=== PATIENT | female | born 1995 | race Caucasian/White ===

== ENCOUNTER 2020-05-15 23:28 | Emergency (ER) | payer OTHER, SELFPAY ==
--- NOTE | ~2020-05-15 | CT_ITS ---
EXAMINATION: CT brain wo con EXAM DATE: 05/15/2020 23:54 INDICATION: Seizure, head injury, fall . Dizziness. TECHNIQUE: Spiral CT of the head was performed without contrast. Axial, coronal and sagittal images were reviewed. The dose-length product (DLP) for this examination was 605.33 mGy-cm. The exposure w as tailored according to patient size, and iterative reconstruction (ASIR) was used as additional dos e reduction technique. Comparison is made to prior examination from 05/21/2019. FINDINGS: There is no acute intraparenchymal hemorrhage. No evidence of intraparenchymal brain mass lesion. No evidence of acute infarction. There is no mass effect or midline shift. The ventricles are normal in size. There are no extra-axial collections. There are no acute calvarial fractures. T he orbits are unremarkable. Soft tissue is unremarkable. The visualized sinuses and mastoid air kathryn ls are well aerated. IMPRESSION: 1. Unremarkable head CT examination. Reviewed, dictated and finalized at location G. CONTROL REPRESENTATIVE
[2020-05-15 23:30] VITALS: BP 118/66; PULSE 108; RESP 20; TEMP 36.8; O2SAT 97
--- NOTE | 2020-05-15 23:36 | ED.SEIZURE ---
HPI - Seizure General Chief Complaint: Seizure Stated Complaint: Seizures Time Seen by Provider: 05/15/20 23:37 Source: patient Mode of arrival: EMS Limitations: no limitations History of Present Illness HPI Narrative: 24-year-old woman with a history of seizures brought in today by EMS after having had 3 seizures at home today. The 1st seizure was unwitnessed and the patient found herself with a bruise on her forehead afterwards. Second seizure was witnessed by her father and was generalized and lasted approximately 30 seconds. Her father heard something later this evening and when he checked on her found her seizing. Her last seizure was several months ago. She has a neurologist at [facility]. complaint: seizure Onset (ago): minute(s) Witnessed: Yes - by Bystander Trauma: Yes Seizure History: Yes Place: home Possible Precipitating Event: none Associated symptoms: denies other symptoms Treatments prior to arrival: none Related Data Home Medications Medication Instructions Recorded Confirmed Fycompa 4 mg PO HS 05/21/19 05/15/20 Vimpat 200 mg PO Q12H 05/21/19 05/15/20 clobazam 10 mg PO HS 05/21/19 05/15/20 lorazepam 1 mg PO DAILY PRN 05/21/19 05/15/20 Allergies Allergy/AdvReac Type Severity Reaction Status Date / Time No Known Allergies Allergy Verified 05/21/19 22:53 Review of Systems Constitutional: Constitutional: Denies chills, Denies fatigue, Denies fever(s) and Denies weakness Eyes: Eyes: Denies change in vision and Denies photophobia ENT: Denies dysphagia, Denies nasal congestion and Denies sore throat Cardiovascular: Cardiovascular: Denies chest pain and Denies radiating jaw, neck or arm pain Respiratory: Respiratory: Denies cough, Denies dyspnea and Denies wheezing Gastrointestinal: Gastrointestinal: Denies abdominal pain, Denies diarrhea, Denies nausea and Denies vomiting Genitourinary: Genitourinary: Denies hematuria, Denies nocturia and Denies dysuria Musculoskeletal: Musculoskeletal: Denies back pain, Denies arthralgias and Denies joint swelling Integumentary/Breasts: Skin/Breast: Denies pruritus, Denies erythema and Denies rash Neurologic: Denies vertigo, Denies dizziness and Denies syncope Hematologic/Lymphatic: Hematologic/Lymphatic: Denies easy bleeding and Denies easy bruising Allergic/Immunologic: Allergic/Immunologic: Denies lip swelling and Denies throat swelling PMFSH Past Medical History Medical History Seizures (Unknown) Family History Family History Father End stage renal failure on dialysis Social History Social History Smoking status: Never smoker Alcohol intake: never Substance use: never Substance use type: prescription drug Other substance usage details: Uses Ativan Frequently, if she has a Seizure at home. Spiritual care concerns: No Exam Const: General: healthy appearing, no acute distress and alert Nutritional Appearance: obese Orientation/consciousness: patient oriented x3 Limitations: no limitations HENMT: Head: normal to inspection and contusion left frontal 4 cm Ears: external ears normal, TM's normal bilaterally and EAC's normal General nose exam: Normal nares present Face and sinus: normal facial exam Eyes: Conjunctivae: conjunctivae normal EOM: EOMs intact bilaterally Resp: Effort & Inspection: normal respiratory effort and not labored Auscultation: clear to auscultation bilaterally, no rales, no rhonchi and no wheezes Cardio: Rate: regular rate Rhythm: regular rhythm Heart sounds: no murmurs GI: GI Palp: No Tenderness to palpation present (GI) and No Guarding due to palpation present (GI) Skin: General skin exam: normal color, no jaundice and no pallor Rashes: no rashes Neuro: General: moves all extremities, no focal motor deficits and CN's II-XI intact bilaterally
[2020-05-16] LABS: Glucose Point of Care 114 (65-105)
[2020-05-16 00:20] LABS: Basophils Absolute Auto 0.05 K/mm3 (0.00-0.10); Basophils Percent Auto 0.4 % (0.0-1.0); Eosinophils Absolute Auto 0.04 K/mm3 (0.02-0.50); Eosinophils Percent Auto 0.3 % (1.0-6.0); Hematocrit 37.3 % (35.0-49.0); Hemoglobin 12.9 g/dL (12.0-15.0); Immature Granulocyte Absolute 0.08 K/mm3 (0.00-0.00); Immature Granulocyte Percent A 0.6 % (0.0-0.0); Lymphocytes Absolute Auto 2.06 K/mm3 (1.10-4.50); Lymphocytes Percent Auto 14.6 % (18.0-42.0); Mean Corpuscular HGB Conc 34.6 g/dL (32.0-36.0); Mean Corpuscular Hemoglobin 32.6 pg (27.0-31.0); Mean Corpuscular Volume 94.2 fL (78.0-102.0); Monocytes Absolute Auto 0.75 K/mm3 (0.10-0.90); Monocytes Percent Auto 5.3 % (2.0-11.0); Neutrophils Absolute Auto 11.2 K/mm3 (1.7-7.2); Neutrophils Percent Auto 78.8 % (50.0-70.0); Platelet Count Result 331 K/mm3 (150-420); Red Blood Count 3.96 M/mm3 (4.20-5.40); Red Cell Distribution Width 13.6 % (11.6-14.4); White Blood Count 14.2 K/mm3 (4.8-10.8)
[2020-05-16 00:23] LABS: Add Urine Microscopic? NO; Appearance Urine Clear (Clear); Bilirubin Urine Negative (Negative); Blood Urine Negative (Negative); Color Urine Yellow (Yellow); Glucose Urine UA Negative (Negative); Ketones Urine Negative (Negative); Leukocyte Esterase Ur Negative (Negative); Nitrate Urine Negative (Negative); Protein Urine Negative (Negative); Urobilinogen Urine 0.2 mg/dL (0.2-1.0); pH Urine 5.5 (5.0-8.0)
[2020-05-16 00:30] LABS: Amphetamine Screen Urine Negative (Negative); Barbiturate Screen Urine Negative (Negative); Benzodiazepines Screen Urine Positive (Negative); Cannabinoid Screen Urine Negative (Negative); Cocaine Screen Urine Negative (Negative); Methadone Screen Urine Negative (Negative); Opiate Screen Urine Negative (Negative); Phencyclidine Screen Urine Negative (Negative)
[2020-05-16 00:35] LABS: Alanine Aminotransferase 17 U/L (14-59); Albumin Level 3.6 g/dL (3.4-5.0); Alkaline Phosphatase 103 U/L (46-116); Anion Gap 10 mmol/L (8-16); Aspartate Amino Transferase 14 U/L (15-37); Blood Urea Nitrogen 9 mg/dL (7-18); Calcium 9.3 mg/dL (8.5-10.1); Carbon Dioxide 25 mmol/L (21-32); Chloride 100 mmol/L (98-108); Creatine Kinase 90 U/L (26-192); Estimated CRCL calculation 95 ml/min; Estimated Glomerular Filt Rate > 60; Glucose 117 mg/dL (70-99); Magnesium 1.8 mg/dL (1.8-2.4); Osmolality Calculated 279 mOsm/kg (285-295); Phosphorus 3.3 mg/dL (2.6-4.7); Potassium 3.7 mmol/L (3.5-5.1); Sodium 135 mmol/L (136-145); Total Protein 8.2 g/dL (6.4-8.2)
--- NOTE | 2020-05-16 01:12 | PC.NURSE ---
no seizure activity while in the er. dr li in with pt discussing plan of care.
--- NOTE | 2020-05-16 01:20 | PC.NURSE ---
spoke with dad, stated 30 sec for 2nd seizure , unaware of time for 1st seizure as he was not home. 3rd seizure she was in bed , dad was awakened by pt hand hitting wall during grand mal seizure , unknown time.
--- NOTE | 2020-05-16 02:04 | PC.NURSE ---
0023 dr li spoke with dr benedict at [facility]
[2020-05-16 02:21] VITALS: BP 104/70; PULSE 88; RESP 18; TEMP 37.1; O2SAT 98
== END 2020-05-16 02:27 | disposition home or self-care (01) ==
PROVIDERS: Emergency Provider Emergency Medicine; PCP Family Medicine
DX: R56.9 Unspecified convulsions (principal)
CPT/HCPCS: 36415; 70450; 80053; 80307; 81003; 82550; 82948; 83735; 84100; 85025; 99283; 99284

== ENCOUNTER 2020-05-22 07:20 | Emergency (ER) | payer OTHER, SELFPAY ==
[2020-05-22] VITALS (27 sets, daily range): BP systolic 85–147; BP diastolic 50–82; PULSE 99–104; RESP 14–18; TEMP 36.8; O2SAT 92–100
--- NOTE | ~2020-05-22 | CT_ITS ---
EXAMINATION: CT brain wo con EXAM DATE: 05/22/2020 10:31 INDICATION: seizure 7 seizures this morning, pt AMS, hx of seizure disorder. TECHNIQUE: Spiral CT of the head was performed without contrast. Axial, coronal and sagittal images were reviewed. The dose-length product (DLP) for this examination was 605.33 mGy-cm. The exposure w as tailored according to patient size, and iterative reconstruction (ASIR) was used as additional dos e reduction technique. Comparison is made to prior examination from 05/15/2020. FINDINGS: There is no acute intraparenchymal hemorrhage. No evidence of intraparenchymal brain mass lesion. No evidence of acute infarction. There is no mass effect or midline shift. The ventricles are normal in size. There are no extra-axial collections. There are no acute calvarial fractures. T he orbits are unremarkable. Soft tissue is unremarkable. The visualized sinuses and mastoid air kathryn ls are well aerated. IMPRESSION: 1. Unremarkable head CT examination. Reviewed, dictated and finalized at location B. APPLIANCE WASHING MACHINE MECHANIC
[2020-05-22] MEDS: LORazepam INJ (*CRX) 2 MG/ML VIAL 1 MG IV PUSH ×3 (07:40→11:30)
--- NOTE | 2020-05-22 08:30 | PC.NURSE ---
Pt noted to have bruises to salma legs and arms, also area to forehead which is reported from a seizure 1 week ago.
--- NOTE | 2020-05-22 09:02 | PCDIET ---
Pts father contacted to speak with dr dickson.
[2020-05-22 09:26] LABS: Basophils Absolute Auto 0.05 K/mm3 (0.00-0.10); Basophils Percent Auto 0.3 % (0.0-1.0); Eosinophils Absolute Auto 0.02 K/mm3 (0.02-0.50); Eosinophils Percent Auto 0.1 % (1.0-6.0); Hematocrit 37.7 % (35.0-49.0); Hemoglobin 12.7 g/dL (12.0-15.0); Immature Granulocyte Absolute 0.08 K/mm3 (0.00-0.00); Immature Granulocyte Percent A 0.5 % (0.0-0.0); Lymphocytes Percent Auto 5.3 % (18.0-42.0); Mean Corpuscular HGB Conc 33.7 g/dL (32.0-36.0); Mean Corpuscular Hemoglobin 32.2 pg (27.0-31.0); Mean Corpuscular Volume 95.7 fL (78.0-102.0); Mean Platelet Volume 9.4 fl (9.2-11.8); Monocytes Absolute Auto 0.42 K/mm3 (0.10-0.90); Monocytes Percent Auto 2.5 % (2.0-11.0); Neutrophils Absolute Auto 15.4 K/mm3 (1.7-7.2); Neutrophils Percent Auto 91.3 % (50.0-70.0); Platelet Count Result 345 K/mm3 (150-420); Red Blood Count 3.94 M/mm3 (4.20-5.40); Red Cell Distribution Width 13.7 % (11.6-14.4); White Blood Count 16.9 K/mm3 (4.8-10.8)
[2020-05-22 09:41] LABS: SPREG INTERNAL CONTROL Positive; Serum Qual hCG Negative
[2020-05-22 09:44] LABS: Alanine Aminotransferase 17 U/L (14-59); Albumin Level 3.6 g/dL (3.4-5.0); Alkaline Phosphatase 99 U/L (46-116); Anion Gap 13 mmol/L (8-16); Aspartate Amino Transferase 12 U/L (15-37); Bilirubin,Total 0.4 mg/dL (0.00-1.00); Blood Urea Nitrogen 12 mg/dL (7-18); Calcium 8.6 mg/dL (8.5-10.1); Carbon Dioxide 21 mmol/L (21-32); Chloride 102 mmol/L (98-108); Estimated Glomerular Filt Rate > 60; Glucose 125 mg/dL (70-99); Osmolality Calculated 282 mOsm/kg (285-295); Potassium 4.2 mmol/L (3.5-5.1); Sodium 136 mmol/L (136-145); Total Protein 8.1 g/dL (6.4-8.2)
[2020-05-22 09:45] LABS: Creatine Kinase 74 U/L (26-192)
--- NOTE | 2020-05-22 10:22 | PC.NURSE ---
Pt remains in a postictal state. pt incontinant of urine, pt cleaned. pt opens eyes to deep painful stimuli. susan
--- NOTE | 2020-05-22 10:48 | PC.NURSE ---
[facility] contacted for transfer. spoke with arvin at the transfer center.
[2020-05-22] MEDS: SODIUM CHLORIDE 0.9% IV 1,000 ML 999 ML IV CONT ×2 (11:00→12:59)
[2020-05-22 11:28] LABS: Add Urine Microscopic? YES; Appearance Urine Clear (Clear); Bilirubin Urine Negative (Negative); Blood Urine Negative (Negative); Color Urine Yellow (Yellow); Glucose Urine UA Negative (Negative); Ketones Urine Negative (Negative); Leukocyte Esterase Ur Negative (Negative); Nitrate Urine Negative (Negative); Protein Urine 1+ (Negative); Specific Grav Ur >= 1.030 (1.010-1.020); Urobilinogen Urine 0.2 mg/dL (0.2-1.0)
[2020-05-22 11:33] LABS: SARS-CoV-2 Ag Negative (Negative)
[2020-05-22 11:34] LABS: Bacteria Urine 2+ /hpf; Mucus Urine Moderate /lpf; RBC Urine 0-2 /hpf (0-2); Squamous Epithelial Cell Urine Few /hpf (Few); WBC Urine 0-3 /hpf (0-3)
[2020-05-22 11:36] LABS: Amphetamine Screen Urine Negative (Negative); Barbiturate Screen Urine Negative (Negative); Benzodiazepines Screen Urine Positive (Negative); Cannabinoid Screen Urine Negative (Negative); Cocaine Screen Urine Negative (Negative); Methadone Screen Urine Negative (Negative); Opiate Screen Urine Negative (Negative); Phencyclidine Screen Urine Negative (Negative)
--- NOTE | 2020-05-22 11:55 | PC.NURSE ---
Pt repositioned, pt continues to be postictal. moaned when repositioned.
--- NOTE | 2020-05-22 12:03 | PC.NURSE ---
Dr. Duarte speaking with Dr. CLARK, neurologist at [facility].
--- NOTE | 2020-05-22 12:10 | PC.NURSE ---
Dr. CLARK requesting that pt go to [facility] [place] and he will accept and see her there.
[2020-05-22 12:22] LABS: Reflex Lactic Acid Yes or No Add Lactic
--- NOTE | 2020-05-22 12:40 | PC.NURSE ---
[facility] does not have a bed available for pt. [facility] called back.
--- NOTE | 2020-05-22 13:45 | PC.NURSE ---
[facility] contacted for transfer
--- NOTE | 2020-05-22 13:51 | ED.SEIZURE ---
HPI - Seizure General Chief Complaint: Seizure Stated Complaint: AMBULANCE Time Seen by Provider: 05/22/20 07:35 Source: patient and family Mode of arrival: EMS Limitations: no limitations History of Present Illness HPI Narrative: Patient presents witha history of frontal lobe epilepsy. She comes in after having 4 brief seizures at home less than one minute long. These started at 4am. Father gave her ativan 1mg. She has had a total of 4 brief seizures at home. Given her history, and physical exam, there is little possibility of meningitis, or head injury. We will evaluate for a metabolic disorder. MD complaint: possible seizure Description of Episode: loss of consciousness and tonic-clonic movement Witnessed: Yes - by Bystander Trauma: No Seizure History: Yes Place: home Possible Precipitating Event: none and other (medication noncompliance) Related Data Home Medications Medication Instructions Recorded Confirmed Fycompa 4 mg PO HS 05/21/19 05/22/20 Vimpat 200 mg PO Q12H 05/21/19 05/22/20 clobazam 10 mg PO HS 05/21/19 05/22/20 lorazepam 1 mg PO DAILY PRN 05/21/19 05/22/20 Allergies Allergy/AdvReac Type Severity Reaction Status Date / Time No Known Allergies Allergy Verified 05/21/19 22:53 Review of Systems Review of Systems: ROS unobtainable: Yes unobtainable due to medical condition [facility] Past Medical History Medical History (Updated 05/22/20 @ 14:19 by Aryan Duarte MD) Seizures (Unknown) Family History Family History Father End stage renal failure on dialysis Social History Social History Smoking status: Never smoker Alcohol intake: never Substance use: never Substance use type: prescription drug Other substance usage details: Uses Ativan Frequently, if she has a Seizure at home. Spiritual care concerns: No Exam Narrative: Exam Narrative: She comes in in a postictal state and is quite drowsy. Const: General: no acute distress HENMT: Ears: external ears normal Other: She may have bitten her tongue as there is some very minimal bleeding from mouth. I can't get her to relax enough to evaluate her mouth well. Eyes: Conjunctivae: conjunctivae normal Neck: Neck: normal visual inspection and no lymphadenopathy Chest: Chest palpation & inspection: normal inspection of the chest Resp: Effort & Inspection: normal respiratory effort Auscultation: clear to auscultation bilaterally Cardio: Rate: regular rate Rhythm: regular rhythm GI: GI Palp: Yes Soft to palpation Other: nontender Skin: General skin exam: normal color Neuro: General: patient oriented x3 Extrem: General: normal to inspection Psych: Mental Status: mental status grossly normal Thought content: Yes Normal thought content present Course Course Emergency Course: She was evaluated with labs and a CT. She has had no symptoms of meningitis according to the father. She had some brief seizures here. This was controlled with Ativan, total of 3mg IV. We will transfer her to [facility] for further care. The nwurologist there has accepted, as it appears she needs further medication management. Vital Signs Vital signs: Vital Signs Temperature 36.8 C 05/22/20 07:24 Pulse Rate 104 H 05/22/20 07:24 Respiratory Rate 18 05/22/20 07:24 Blood Pressure 109/65 05/22/20 07:24 Pulse Oximetry 96 05/22/20 07:24 Temperature 36.8 C 05/22/20 07:24 Pulse Rate 99 05/22/20 08:42 Respiratory Rate 14 05/22/20 08:42 Blood Pressure 126/59 L 05/22/20 11:31 Pulse Oximetry 95 05/22/20 11:31 Transfer Transfered to: Other ([facility]) Transportation: ALS MDM - Seizure MDM Narrative Medical decision making narrative: Seizure, vs meningitis, metabolic disorder, new head injury Medical Records Attestation: I reviewed the patient's medical records. Lab Data Attestation: I reviewed the patient'
[2020-05-22] MEDS: SODIUM CHLORIDE 0.9% IV 1,000 ML 999 ML (14:13)
== END 2020-05-22 14:30 | disposition short-term general hospital (02) ==
PROVIDERS: Emergency Provider Emergency Medicine; PCP Family Medicine
DX: G40.909 Epilepsy, unspecified, not intractable, without status epilepticus (principal)
CPT/HCPCS: 36415; 51701; 70450; 80053; 80307; 81001; 82550; 83605; 84703; 85025; 87426; 96361; 96374; 96376; 99285; C9803; J2060; J7030

== ENCOUNTER 2020-06-27 23:02 | Emergency (ER) | payer OTHER, SELFPAY ==
--- NOTE | ~2020-06-27 | CT_ITS ---
EXAMINATION: CT brain wo con EXAM DATE: 06/27/2020 23:37 INDICATION: Acute psychosis. Temporary change in awareness. TECHNIQUE: Spiral CT of the head was performed without contrast. Axial, coronal and sagittal images were reviewed. The dose-length product (DLP) for this examination was 605.33 mGy-cm. The exposure w as tailored according to patient size, and iterative reconstruction (ASIR) was used as additional dos e reduction technique. Comparison is made to prior examination from 05/22/2020. FINDINGS: There is no acute intraparenchymal hemorrhage. No evidence of intraparenchymal brain mass lesion. No evidence of acute infarction. There is no mass effect or midline shift. The ventricles are normal in size. There are no extra-axial collections. There are no acute calvarial fractures. T he orbits are unremarkable. Soft tissue is unremarkable. The visualized sinuses and mastoid air kathryn ls are well aerated. IMPRESSION: No acute intracranial findings. Reviewed, dictated and finalized at location A. TRON BEAM PHOTO MASK MAKER
[2020-06-27 23:05] VITALS: BP 119/68; PULSE 89; RESP 20; TEMP 37.1
--- NOTE | 2020-06-27 23:15 | ED.PSYCH ---
HPI - Psych General Chief Complaint: Psychiatric Symptoms Stated Complaint: amb Time Seen by Provider: 06/27/20 23:05 Source: patient Mode of arrival: EMS Limitations: altered mental status History of Present Illness HPI Narrative: 24-year-old woman with a history of seizures brought to the emergency department by EMS for suicidal ideation and hallucinations that started this evening. Patient states that she had a knife and was going to cut her wrist at the behest of Ezio, a person that she can see and hear that nobody else can. Her father states that she has been espino this last week and saw her primary care doctor approximately 1 week ago where one of her seizure medications was increased (Fycompa). She went back to her primary care doctor a few days ago and he prescribed and anti depressant which she never took home from the pharmacy. Father states that this bizarre behavior started this evening after she came out of her bedroom. She had a knife in her hand and was talking about bleeding and killing herself. He thinks that maybe she had had a seizure there. Her father states she has never had psychiatric illness, much less suicidal ideation. She denies taking any medications or drugs other than that which was prescribed. MD complaint: suicidal ideation Onset (ago): hour(s) (2-3) Duration: constant History of same: No Relieving factors: none Exacerbating factors: none Associated psychiatric symptoms: suicidal ideation, auditory hallucinations and visual hallucinations Treatments prior to arrival: none If self harm: admits thoughts of self harm, has plan, self-inflicted trauma and gunshot Details of plan: states that her imagined friend told her to cut her arm open and that she also thought about using a gun. Related Data Home Medications Medication Instructions Recorded Confirmed Fycompa 4 mg PO HS 05/21/19 06/27/20 Vimpat 200 mg PO Q12H 05/21/19 06/27/20 clobazam 10 mg PO HS 05/21/19 06/27/20 levetiracetam [Keppra] 500 mg PO BID 06/27/20 06/27/20 Allergies Allergy/AdvReac Type Severity Reaction Status Date / Time No Known Allergies Allergy Verified 05/21/19 22:53 Review of Systems Review of Systems: ROS unobtainable: Yes unobtainable due to mental status PMFSH Past Medical History Medical History (Updated 06/28/20 @ 06:32 by Fran Corrigan MD) Seizures (Unknown) Family History Family History Father End stage renal failure on dialysis Social History Social History Smoking status: Never smoker Alcohol intake: never Substance use: never Substance use type: prescription drug Other substance usage details: Uses Ativan Frequently, if she has a Seizure at home. Spiritual care concerns: No Exam Const: General: healthy appearing, no acute distress and alert Nutritional Appearance: obese Limitations: altered mental status Other: Oriented to month, person HENMT: Head: normal to inspection Ears: external ears normal, TM's normal bilaterally and EAC's normal General nose exam: Normal nares present Face and sinus: normal facial exam Mouth: Yes moist mucous membranes abnormal Throat: posterior oropharynx normal Eyes: Conjunctivae: conjunctivae normal Pupils: Equal, round and reactive pupils present EOM: EOMs intact bilaterally Neck: Neck: normal visual inspection and no lymphadenopathy Resp: Effort & Inspection: normal respiratory effort and not labored Auscultation: clear to auscultation bilaterally, no rales, no rhonchi and no wheezes Cardio: Rate: regular rate Rhythm: regular rhythm Heart sounds: no murmurs GI: GI Palp: Yes Soft to palpation and No Tenderness to palpation present (GI) Skin: General skin exam: normal color, no jaundice and no pallor Rashes: no rashes Neuro: General: patient oriented x3, moves all extremities, no focal motor deficits and CN's II-XI int
[2020-06-28 00:04] LABS: Basophils Absolute Auto 0.04 K/mm3 (0.00-0.10); Basophils Percent Auto 0.4 % (0.0-1.0); Eosinophils Absolute Auto 0.05 K/mm3 (0.02-0.50); Eosinophils Percent Auto 0.5 % (1.0-6.0); Hematocrit 38.2 % (35.0-49.0); Hemoglobin 13.2 g/dL (12.0-15.0); Immature Granulocyte Absolute 0.04 K/mm3 (0.00-0.00); Immature Granulocyte Percent A 0.4 % (0.0-0.0); Lymphocytes Absolute Auto 1.79 K/mm3 (1.10-4.50); Lymphocytes Percent Auto 16.2 % (18.0-42.0); Mean Corpuscular HGB Conc 34.6 g/dL (32.0-36.0); Mean Corpuscular Hemoglobin 32.7 pg (27.0-31.0); Mean Corpuscular Volume 94.6 fL (78.0-102.0); Mean Platelet Volume 9.4 fl (9.2-11.8); Monocytes Absolute Auto 0.59 K/mm3 (0.10-0.90); Monocytes Percent Auto 5.3 % (2.0-11.0); Neutrophils Absolute Auto 8.6 K/mm3 (1.7-7.2); Neutrophils Percent Auto 77.2 % (50.0-70.0); Platelet Count Result 286 K/mm3 (150-420); Red Blood Count 4.04 M/mm3 (4.20-5.40); Red Cell Distribution Width 13.5 % (11.6-14.4); White Blood Count 11.1 K/mm3 (4.8-10.8)
[2020-06-28 00:13] LABS: Add Urine Microscopic? YES; Appearance Urine Clear (Clear); Bilirubin Urine Negative (Negative); Blood Urine Negative (Negative); Color Urine Yellow (Yellow); Glucose Urine UA Negative (Negative); Ketones Urine Negative (Negative); Leukocyte Esterase Ur 1+ LEU/UL (Negative); Nitrate Urine Negative (Negative); Protein Urine Negative (Negative); Urobilinogen Urine 0.2 mg/dL (0.2-1.0)
--- NOTE | 2020-06-28 00:13 | PC.NURSE ---
0013-Patient is in the direct view of sitter.
[2020-06-28 00:21] LABS: Bacteria Urine 1+ /hpf; RBC Urine 0-2 /hpf (0-2); Squamous Epithelial Cell Urine Few /hpf (Few)
[2020-06-28 00:23] LABS: Amphetamine Screen Urine Negative (Negative); Barbiturate Screen Urine Negative (Negative); Benzodiazepines Screen Urine Positive (Negative); Cannabinoid Screen Urine Negative (Negative); Cocaine Screen Urine Negative (Negative); Methadone Screen Urine Negative (Negative); Opiate Screen Urine Negative (Negative); Phencyclidine Screen Urine Negative (Negative)
[2020-06-28 00:25] LABS: Pregnancy On Board Control Positive; Urine Pregnancy Test Negative
[2020-06-28 00:27] LABS: Alanine Aminotransferase 10 U/L (14-59); Albumin Level 3.6 g/dL (3.4-5.0); Alkaline Phosphatase 103 U/L (46-116); Anion Gap 11 mmol/L (8-16); Aspartate Amino Transferase 24 U/L (15-37); Bilirubin,Total 0.6 mg/dL (0.00-1.00); Blood Urea Nitrogen 11 mg/dL (7-18); Calcium 8.6 mg/dL (8.5-10.1); Carbon Dioxide 25 mmol/L (21-32); Chloride 103 mmol/L (98-108); Estimated CRCL calculation 98 ml/min; Estimated Glomerular Filt Rate > 60; Glucose 94 mg/dL (70-99); Osmolality Calculated 287 mOsm/kg (285-295); Potassium 3.7 mmol/L (3.5-5.1); Sodium 139 mmol/L (136-145); Thyroid Stimulating Hormone 4.07 uIU/mL (0.36-3.74)
[2020-06-28 00:28] LABS: Acetaminophen < 2 ug/mL (10-30); Ethanol < 3 mg/dL (0-6); Salicylate < 0.2 mg/dL (2.8-20.0)
--- NOTE | 2020-06-28 01:03 | PC.NURSE ---
0103-Patient is sitting on the bed eating Jello, patient is in the direct view of sitter.
--- NOTE | 2020-06-28 01:04 | PC.NURSE ---
Pt. has sitter at bedside under continuous observation. Pt. sitting in bed and is cooperative, but speaking to my friend Ezio is talking to me . Pt. having auditory hallucinations and now states that Ezio has a friend also. ERP spoke c pts.neurologist at [facility] Dr. Rodger Frias and noted increase in her medication Fycompa having s.e. similar to this. Call then placed to mental health for eval.
--- NOTE | 2020-06-28 01:35 | PC.NURSE ---
Per ERP order pt. to take her HS medication of Keppra 500 mg po and Vimpat 200 mg po. Pt. given her own home medication. Pt. encouraged to take medication as prescribed by Dr. Pt. hesitant to take meds but c encouragement took medication s difficulty.
--- NOTE | 2020-06-28 01:47 | PC.NURSE ---
0147-Patient is sitting on the bed talking and watching television, patient is in the direct view of sitter.
[2020-06-28 02:19] VITALS: BP 110/61; PULSE 73; RESP 18; TEMP 36.4; O2SAT 98
--- NOTE | 2020-06-28 04:37 | PC.NURSE ---
Sai Florence, counselor [facility] finished pt. eval and POC to admit and transfer for inpt. psychiatric services. Pt. is agreeable to transfer.
--- NOTE | 2020-06-28 04:41 | PC.NURSE ---
0441-Patient sitting up in bed drinking apple juice and talking, patient is in the direct view of sitter.
[2020-06-28 05:15] LABS: SARS-CoV-2 Ag Negative (Negative)
--- NOTE | 2020-06-28 07:32 | PC.NURSE ---
patient sitting up in bed comfortably talking and playing with her hands sitter by bedside
[2020-06-28 08:05] VITALS: BP 119/55; PULSE 79; RESP 20; TEMP 36.3; O2SAT 98
--- NOTE | 2020-06-28 08:06 | PC.NURSE ---
patient sitting in bed patient has been quite seems to be falling asleep on an off sitter is sitting by bedside
--- NOTE | 2020-06-28 08:13 | PC.NURSE ---
Call p[laced to [facility] for pt. transfer. Report given to Grover.
[2020-07-01 09:17] LABS: Levetiracetam Keppra 3.3 mcg/mL (12.0-46.0)
== END 2020-06-28 09:04 ==
PROVIDERS: Emergency Provider Emergency Medicine
DX: R45.851 Suicidal ideations (principal); G40.909 Epilepsy, unspecified, not intractable, without status epilepticus; R44.2 Other hallucinations; R82.90 Unspecified abnormal findings in urine
CPT/HCPCS: 36415; 70450; 80053; 80177; 80307; 81001; 81025; 84443; 85025; 87086; 87088; 87426; 99285; C9803

== ENCOUNTER 2020-07-07 19:09 | Emergency (ER) | payer OTHER, SELFPAY ==
--- NOTE | ~2020-07-07 | XR_ITS ---
XR chest 2V DATE: 07/08/2020 00:04 INDICATION: Fever TECHNIQUE: PA and lateral views COMPARISON: 05/16/2015 portable AP chest FINDINGS: There are bilateral lower lung infiltrates and/or atelectasis. No pulmonary vascular congestion or pleural effusion or pneumothorax is evident. Heart size appears n ormal. IMPRESSION: Bibasilar infiltrate and/or atelectasis Reviewed, dictated and finalized at location A. NCIAL REPORTING ANALYST
[2020-07-07 19:15] VITALS: BP 120/62; PULSE 123; RESP 20; TEMP 38.4; O2SAT 97
[2020-07-07 19:42] VITALS: PULSE 120
--- NOTE | 2020-07-07 20:03 | ED.SEIZURE ---
HPI - Seizure General Chief Complaint: Seizure Stated Complaint: ambulance Time Seen by Provider: 07/07/20 19:10 Source: patient and EMS Mode of arrival: EMS Limitations: altered mental status History of Present Illness HPI Narrative: 24-year-old woman with a history of seizures brought by EMS to the emergency department for a 40 second seizure that happened approximately 40 minutes prior to arrival. It was witnessed by family at home. Other than a sore throat the patient denies any other complaints. Her father states that she may have had a seizure this morning as she called him crying that she had had an episode of vomiting, which sometimes occurs after her seizures. He states that she was placed on a medication that seemed to make her sleepy and he was told that this effect would wear off with time, however she seems worse in the last day or 2. MD complaint: seizure Onset (ago): minute(s) (40) Description of Episode: loss of consciousness Duration of episode: 40 -: second(s) Witnessed: Yes - by Bystander Trauma: No Seizure History: Yes Place: home Possible Precipitating Event: fever Treatments prior to arrival: none Related Data Home Medications Medication Instructions Recorded Confirmed Fycompa 8 mg PO HS 05/21/19 07/07/20 Vimpat 200 mg PO Q12H 05/21/19 07/07/20 clobazam 20 mg PO HS 05/21/19 07/07/20 olanzapine 5 mg PO BID 07/07/20 07/07/20 Allergies Allergy/AdvReac Type Severity Reaction Status Date / Time No Known Allergies Allergy Verified 05/21/19 22:53 Review of Systems Review of Systems: Narrative: Patient is rather reticent and requires persistence to maintain or tension. Constitutional: Constitutional: Reports fatigue and Reports fever(s) Eyes: Eyes: Denies change in vision ENT: Reports sore throat Cardiovascular: Cardiovascular: Denies chest pain and Denies radiating jaw, neck or arm pain Respiratory: Respiratory: Denies cough and Denies dyspnea Gastrointestinal: Gastrointestinal: Denies abdominal pain, Denies nausea and Denies vomiting Genitourinary: Genitourinary: Denies nocturia and Denies dysuria Musculoskeletal: Musculoskeletal: Denies back pain, Denies arthralgias and Denies joint swelling Integumentary/Breasts: Skin/Breast: Denies pruritus, Denies erythema and Denies rash Neurologic: Denies headache(s) Endocrine: Endocrine: Denies polydipsia and Denies polyuria [facility] Past Medical History Medical History (Updated 07/08/20 @ 00:32 by Fran Corrigan MD) Seizures (Unknown) Family History Family History Father End stage renal failure on dialysis Social History Social History Smoking status: Never smoker Alcohol intake: never Substance use: never Substance use type: prescription drug Other substance usage details: Uses Ativan Frequently, if she has a Seizure at home. Spiritual care concerns: No Exam Const: General: healthy appearing and no acute distress Limitations: altered mental status Other: Patient is reticent and requires frequent prompting to maintain her attention. HENMT: Head: normal to inspection Ears: external ears normal, TM's normal bilaterally and EAC's normal General nose exam: Normal nares present Face and sinus: normal facial exam Mouth: Yes moist mucous membranes Eyes: Conjunctivae: conjunctivae normal Pupils: Equal, round and reactive pupils present EOM: EOMs intact bilaterally Resp: Effort & Inspection: normal respiratory effort and not labored Auscultation: clear to auscultation bilaterally, no rales, no rhonchi and no wheezes Cardio: Rate: regular rate Rhythm: regular rhythm Heart sounds: no murmurs GI: Inspection: non-distended GI Palp: Yes Soft to palpation and No Tenderness to palpation present (GI) Skin: General skin exam: normal color, no jaundice and no pallor Rashes: no rashes Neuro: General: moves
[2020-07-07] MEDS: SODIUM CHLORIDE 0.9% IV 1,000 ML 999 ML IV CONT (20:59)
[2020-07-07 21:00] VITALS: BP 116/68; PULSE 110; RESP 20; O2SAT 98
[2020-07-07 21:21] LABS: Influenza Control Valid (Valid)
[2020-07-07 21:22] LABS: SARS-CoV-2 Ag Negative (Negative)
[2020-07-07 21:29] LABS: Eosinophils Absolute Auto 0.01 K/mm3 (0.02-0.50); Eosinophils Percent Auto 0.1 % (1.0-6.0); Mean Platelet Volume 9.6 fl (9.2-11.8)
[2020-07-07 21:35] LABS: INR 1.1; Partial Thromboplastin Time 23.9 SEC (23.90-30.70); Prothrombin Time 11.2 Seconds (9.50-12.10)
[2020-07-07 21:39] LABS: Alanine Aminotransferase 51 U/L (14-59); Albumin Level 2.8 g/dL (3.4-5.0); Alkaline Phosphatase 75 U/L (46-116); Anion Gap 9 mmol/L (8-16); Aspartate Amino Transferase 49 U/L (15-37); Bilirubin,Total 0.9 mg/dL (0.00-1.00); Blood Urea Nitrogen 9 mg/dL (7-18); CRP 6.2 mg/dL (0.0-0.9); Calcium 7.5 mg/dL (8.5-10.1); Carbon Dioxide 24 mmol/L (21-32); Chloride 102 mmol/L (98-108); Estimated CRCL calculation 107 ml/min; Estimated Glomerular Filt Rate > 60; Glucose 110 mg/dL (70-99); Osmolality Calculated 279 mOsm/kg (285-295); Potassium 3.4 mmol/L (3.5-5.1); Sodium 135 mmol/L (136-145); Total Protein 6.5 g/dL (6.4-8.2)
[2020-07-07 21:41] LABS: Magnesium 1.6 mg/dL (1.8-2.4); Phosphorus 2.2 mg/dL (2.6-4.7)
[2020-07-07 21:44] LABS: Hematocrit 33.4 % (35.0-49.0); Hemoglobin 11.4 g/dL (12.0-15.0); Mean Corpuscular HGB Conc 34.1 g/dL (32.0-36.0); Mean Corpuscular Hemoglobin 32.5 pg (27.0-31.0); Mean Corpuscular Volume 95.2 fL (78.0-102.0); Platelet Count Result 256 K/mm3 (150-420); Red Blood Count 3.51 M/mm3 (4.20-5.40); Red Cell Distribution Width 14.1 % (11.6-14.4); White Blood Count 10.6 K/mm3 (4.8-10.8)
[2020-07-07 21:45] LABS: Immature Granulocyte Percent A 0.1 % (0.0-0.0); Lymphocytes Percent Auto 9.6 % (18.0-42.0); Monocytes Percent Auto 6.4 % (2.0-11.0); Neutrophils Percent Auto 83.1 % (50.0-70.0)
[2020-07-07 21:46] LABS: Basophils Percent Auto 0.2 % (0.0-1.0); Nucleated Red Blood Cells Perc 0.1 % (0-0.0)
[2020-07-07 21:47] LABS: Basophils Absolute Auto 0.02 K/mm3 (0.00-0.10); Immature Granulocyte Absolute 0.06 K/mm3 (0.00-0.00); Lymphocytes Absolute Auto 1.02 K/mm3 (1.10-4.50); Monocytes Absolute Auto 0.68 K/mm3 (0.10-0.90); Neutrophils Absolute Auto 8.8 K/mm3 (1.7-7.2)
[2020-07-07 22:04] LABS: Lactic Acid Reflex 1.4 mmol/L (0.4-2.0)
[2020-07-07 22:12] VITALS: BP 98/50; PULSE 102; RESP 18; TEMP 37.3; O2SAT 96
[2020-07-07 22:48] VITALS: BP 129/75; PULSE 103; RESP 18; TEMP 37.1; O2SAT 98
[2020-07-07 22:57] LABS: Add Urine Microscopic? NO; Appearance Urine Clear (Clear); Bilirubin Urine Negative (Negative); Blood Urine Negative (Negative); Color Urine Yellow (Yellow); Glucose Urine UA Negative (Negative); Ketones Urine Negative (Negative); Leukocyte Esterase Ur Negative LEU/UL (Negative); Nitrate Urine Negative (Negative); Protein Urine Negative (Negative); Specific Grav Ur 1.015 (1.010-1.020); Urobilinogen Urine 0.2 mg/dL (0.2-1.0); pH Urine 7.5 (5.0-8.0)
--- NOTE | 2020-07-07 23:35 | PC.NURSE ---
Call placed to [facility] for pts. neuro for consult. Awaiting call back from
[2020-07-07 23:39] LABS: Pregnancy On Board Control Positive; Urine Pregnancy Test Negative
--- NOTE | 2020-07-07 23:42 | PC.NURSE ---
Call back from oncall neuro Dr. Montrell William. ERP spoke c Dr. Cano received.
--- NOTE | 2020-07-07 23:47 | PC.NURSE ---
Pt. to be transferred to [facility], will await call back for bed assignment and reports. Paperwork signed for transfer.
[2020-07-08 00:20] VITALS: O2SAT 95
[2020-07-08] MEDS: LORazepam INJ (*CRX) 2 MG/ML VIAL 1 MG IV PUSH (00:24)
--- NOTE | 2020-07-08 00:25 | PC.NURSE ---
Report given to KOBY Lopez at [facility]. After report given and off phone, pt. began having seizure that lasted approx 20 sec. Pt. snoring resp. and sleeping. IV Ativan given per order and pt. placed on 2L NC O2.
[2020-07-08 00:29] LABS: Creatine Kinase 64 U/L (26-192)
[2020-07-08 00:32] VITALS: BP 125/68; PULSE 117; RESP 20; TEMP 37.1; O2SAT 95
--- NOTE | 2020-07-08 00:37 | PC.NURSE ---
Pt. currently sleeping, thu. shows Stach, call back to [facility] and update given to KOBY Lopez Call placed to [facility] for pt. transfer.
--- NOTE | 2020-07-08 01:18 | PC.NURSE ---
Pt. sleeping, report given to [facility] and pt. loaded for transfer.VSS.
== END 2020-07-08 01:19 | disposition short-term general hospital (02) ==
PROVIDERS: Emergency Provider Emergency Medicine
DX: G21.0 Malignant neuroleptic syndrome (principal); G40.909 Epilepsy, unspecified, not intractable, without status epilepticus; Z20.822 Contact with and (suspected) exposure to COVID-19
CPT/HCPCS: 36415; 71046; 80053; 81003; 81025; 82550; 83605; 83735; 84100; 85025; 85610; 85730; 86140; 87040; 87081; 87426; 87804; 87880; 96361; 96374; 99285; C9803; J2060; J7030

== ENCOUNTER 2020-09-12 10:18 | Emergency (ER) | payer OTHER, SELFPAY ==
[2020-09-12] VITALS (9 sets, daily range): BP systolic 98–126; BP diastolic 46–78; PULSE 94–121; RESP 11–23; TEMP 36.6; O2SAT 95–100
--- NOTE | 2020-09-12 10:31 | ECG_ITS ---
Measurements Intervals [place] Rate: 106 P: 42 AR: 143 QRS: 42 QRSD: 86 T: -4 QT: 314 QTc: 417 Interpretive Statements SINUS TACHYCARDIA MINIMAL Q WAVES- INFERIOR LEADS BORDERLINE ST-T WAVE ABNORMALITY- INFERIOR LEADS ABNORMAL ECG Electronically Signed On 09-12-2020 11:54:25 CDT by Eamon Emanuel D.O.
--- NOTE | 2020-09-12 10:46 | ED.GENADULT ---
HPI - General Adult General Chief complaint: Seizure Stated complaint: ambulance Source: patient and EMS Mode of arrival: EMS Limitations: clinical condition History of Present Illness HPI narrative: Randa is a 25F with a PMH of epilepsy that was brought in by EMS for having 10 tonic clinic seizures in the last 24 hours. Randa is still post-ictal and not able to give much additional history. However, she denies any pain, SOB, dysuria, abdominal pain, N/V, diarrhea or cough. (by med bottle Clobazam has been out for 3 weeks). Related Data Home Medications Medication Instructions Recorded Confirmed Fycompa 8 mg PO HS 05/21/19 09/12/20 Vimpat 200 mg PO Q12H 05/21/19 09/12/20 clobazam 20 mg PO HS 05/21/19 09/12/20 olanzapine 5 mg PO BID 07/07/20 09/12/20 Allergies Allergy/AdvReac Type Severity Reaction Status Date / Time No Known Allergies Allergy Verified 05/21/19 22:53 Review of Systems Review of Systems: All systems reviewed & are unremarkable except as noted in HPI and below ROS unobtainable: Yes unobtainable due to medical condition [facility] Past Medical History Medical History (Updated 09/12/20 @ 16:29 by Brandin Vazquez DO) Seizures (Unknown) Family History Family History Father End stage renal failure on dialysis Social History Social History Smoking status: Never smoker Alcohol intake: never Substance use: never Substance use type: prescription drug Other substance usage details: Uses Ativan Frequently, if she has a Seizure at home. Spiritual care concerns: No Exam Const: General: no acute distress and confusion Limitations: altered mental status Other: Oriented to person but not place or time yet. Sitting on the cot, cross legged starring into space answering questions by shaking her head yes and no. HENMT: Head: normal to inspection Other: atraumatic Eyes: Conjunctivae: conjunctivae normal Pupils: Equal, round and reactive pupils present EOM: EOMs intact bilaterally Neck: Neck: normal visual inspection Chest: Chest palpation & inspection: normal inspection of the chest Resp: Effort & Inspection: normal respiratory effort Auscultation: clear to auscultation bilaterally Cardio: Rate: tachycardic Rhythm: regular rhythm Heart sounds: no murmurs GI: GI Palp: Yes Soft to palpation, No Tenderness to palpation present (GI) and No Guarding due to palpation present (GI) : General: Yes no CVA tenderness Skin: General skin exam: normal color Rashes: no rashes Neuro: General: patient oriented x3 and moves all extremities Extrem: General: normal to inspection Psych: Mental Status: mental status grossly normal Course Course Emergency Course: Randa was evaluated. Ordered labs and EKG. EKG showed sinus tach with normal axis, No ST elevation/depression or ectopy 1131 Called the office of her neurologist Dr. Altagracia Gudino but got no answer so a message was left. She was noted to have another tonic-clonic seizure shortly after this. She was given 1mg of ativan [facility] was contacted for consult vs transfer at 1147. Deisy stated that they are on medical delay and she will call back when able. Next we called [place] and I spoke with Roseann of the hospitalist at 1324. She recommended calling Dr. Argueta. He recommended Keppra 750IV and transfer to [place]. I called Roseann back who accepted the patient under Dr. Clark. She was transferred to [place] for a higher level of care Vital Signs Vital signs: Vital Signs Temperature 98 F 09/12/20 10:18 Pulse Rate 115 H 09/12/20 10:18 Respiratory Rate 16 09/12/20 10:18 Blood Pressure 126/70 09/12/20 10:18 Pulse Oximetry 95 09/12/20 10:18 Temperature 97.8 F 09/12/20 14:38 Pulse Rate 94 09/12/20 14:38 Respiratory Rate 14 09/12/20 14:38 Blood Pressure 107/60 09/12/20 14:38
[2020-09-12 10:56] LABS: Basophils Absolute Auto 0.03 K/mm3 (0.00-0.10); Basophils Percent Auto 0.2 % (0.0-1.0); Eosinophils Absolute Auto 0.03 K/mm3 (0.02-0.50); Eosinophils Percent Auto 0.2 % (1.0-6.0); Hematocrit 38.7 % (35.0-49.0); Hemoglobin 11.9 g/dL (12.0-15.0); Immature Granulocyte Absolute 0.07 K/mm3 (0.00-0.00); Immature Granulocyte Percent A 0.6 % (0.0-0.0); Lymphocytes Absolute Auto 1.44 K/mm3 (1.10-4.50); Lymphocytes Percent Auto 11.3 % (18.0-42.0); Mean Corpuscular HGB Conc 30.7 g/dL (32.0-36.0); Mean Corpuscular Hemoglobin 31.6 pg (27.0-31.0); Mean Corpuscular Volume 102.9 fL (78.0-102.0); Mean Platelet Volume 9.4 fl (9.2-11.8); Monocytes Percent Auto 3.1 % (2.0-11.0); Neutrophils Absolute Auto 10.7 K/mm3 (1.7-7.2); Neutrophils Percent Auto 84.6 % (50.0-70.0); Platelet Count Result 297 K/mm3 (150-420); Red Blood Count 3.76 M/mm3 (4.20-5.40); White Blood Count 12.7 K/mm3 (4.8-10.8)
[2020-09-12 11:11] LABS: Alanine Aminotransferase 34 U/L (14-59); Albumin Level 3.3 g/dL (3.4-5.0); Alkaline Phosphatase 120 U/L (46-116); Anion Gap 10 mmol/L (8-16); Aspartate Amino Transferase 26 U/L (15-37); Bilirubin,Total 0.7 mg/dL (0.00-1.00); Blood Urea Nitrogen 12 mg/dL (7-18); Calcium 8.9 mg/dL (8.5-10.1); Carbon Dioxide 23 mmol/L (21-32); Chloride 101 mmol/L (98-108); Estimated Glomerular Filt Rate > 60; Ethanol < 3 mg/dL (0-6); Glucose 101 mg/dL (70-99); Osmolality Calculated 277 mOsm/kg (285-295); Potassium 4.4 mmol/L (3.5-5.1); Sodium 134 mmol/L (136-145); Total Protein 7.9 g/dL (6.4-8.2)
[2020-09-12] MEDS: LORazepam INJ (*CRX) 2 MG/ML VIAL 1 MG IV PUSH (11:41)
--- NOTE | 2020-09-12 11:57 | PC.NURSE ---
1139 pt began seizure activity at this time, rn at bedside throughout. seizure duration 2 minutes. nasal cannula oxygen applied, suction initiated for small amount of vomit. vital signs monitored and stable throughout seizure. pt is currently
--- NOTE | 2020-09-12 11:59 | PC.NURSE ---
pt is being m onitored closely during postictal phase. erp aware. medication provided.
--- NOTE | 2020-09-12 12:00 | PC.NURSE ---
[facility] transfer line contacted by [facility]. awaiting call back.
[2020-09-12 12:21] LABS: Add Urine Microscopic? NO; Appearance Urine Clear (Clear); Bilirubin Urine Negative (Negative); Blood Urine Negative (Negative); Color Urine Yellow (Yellow); Glucose Urine UA Negative (Negative); Ketones Urine Negative (Negative); Leukocyte Esterase Ur Negative (Negative); Nitrate Urine Negative (Negative); Protein Urine Negative (Negative); Specific Grav Ur >= 1.030 (1.010-1.020); Urobilinogen Urine 0.2 mg/dL (0.2-1.0); pH Urine 5.5 (5.0-8.0)
[2020-09-12 12:22] LABS: Urine Pregnancy Test Negative
[2020-09-12 12:23] LABS: Pregnancy On Board Control Positive
[2020-09-12 12:27] LABS: Amphetamine Screen Urine Negative (Negative); Barbiturate Screen Urine Negative (Negative); Benzodiazepines Screen Urine Positive (Negative); Cannabinoid Screen Urine Negative (Negative); Cocaine Screen Urine Negative (Negative); Methadone Screen Urine Negative (Negative); Opiate Screen Urine Negative (Negative); Phencyclidine Screen Urine Negative (Negative)
--- NOTE | 2020-09-12 13:11 | PC.NURSE ---
[facility] transfer contacted by erp. awaiting call back
--- NOTE | 2020-09-12 13:16 | PC.NURSE ---
[facility], [facility], contacted for transfer. awaiting call back
--- NOTE | 2020-09-12 14:31 | PC.NURSE ---
1321 erp spoke with Pernell Macedo and dr. espinoza neurology. [address] hopkins.
[2020-09-12 15:11] LABS: SARS-CoV-2 RNA PCR Negative (Negative)
--- NOTE | 2020-09-12 16:01 | PC.NURSE ---
PT UNABLE TO SIGN TRANSFER DOCUMENTATION DUE TO POSTICTAL STATE. TWO NURSES AND ERP AWARE AND SIGNED OFF. PATINT FATHER ALYSON TERESA CON TACTED AND APPROVED.
== END 2020-09-12 14:55 | disposition short-term general hospital (02) ==
PROVIDERS: Emergency Provider Family Medicine; PCP Family Medicine
DX: G40.909 Epilepsy, unspecified, not intractable, without status epilepticus (principal); Z20.822 Contact with and (suspected) exposure to COVID-19
CPT/HCPCS: 36415; 80053; 80307; 81003; 81025; 85025; 93005; 96374; 99285; C9803; J2060; U0003; U0005

== ENCOUNTER 2020-09-12 15:30 | Observation (INO) | payer OTHER, SELFPAY ==
[2020-09-12 15:30] VITALS: BP 103/60; PULSE 103; RESP 16; TEMP 36.3; O2SAT 98
[2020-09-12 15:40] VITALS: BMI 44.1
--- NOTE | 2020-09-12 16:30 | PM.IMHP ---
H&P: HPI History of Present Illness Date/Time: 09/12/20 16:30 Chief Complaint: Breakthrough seizures. Narrative: This is a 25-year-old female with epilepsy who is being directly admitted to the hospitalist service from the emergency department at the [facility] [place] further evaluation after she has had several breakthrough seizures. She is a bit somnolent at the time my evaluation but is able to provide a pretty good history. From what I can gather she was diagnosed with epilepsy at the age of 14 or 15 and she is followed by Dr. Altagracia Champion affiliated with [facility] in [place]. It sounds as though her epilepsy has been difficult to control and she is on numerous medications including p.o. Ativan ?as needed for seizures.? She states compliance with her medications however the ER physician documented that she has been out of her Clobazam for 3 weeks. In any event she was brought to the outside facility via EMS from home after she reportedly had 10 tonic-clonic seizures in the past 24 hours. She received lorazepam x2 with cessation of her seizures and she has been mildly postictal since that time. Unfortunately there were no beds in [place] and she is being transferred to [place] for consultation with Dr. Argueta (neurology). He recommended giving Keppra 750 milligrams IV x1 however that was not given prior to transport. Currently she has no complaints aside from a Gregory catheter being in place. She is also thirsty. She denies headache, body aches, myalgias, fever, chills, sweats, neck ache, cold and flu symptoms, chest pain, shortness of breath, nausea, vomiting, diarrhea, and dysuria. Review of Systems Review of Systems: Narrative: Twelve systems were reviewed with pertinent positives and negatives as per HPI. She denies recent cold and flu symptoms. No cough or shortness of breath. No exposure to those positive for COVID-19. She does not know when she last had her period. Except as documented, all other systems were reviewed and are negative. [facility] Past Medical History Medical History (Updated 09/12/20 @ 21:16 by Roseann Garcia PA-C) Epilepsy Patient of Dr. Altagracia Champion in [place]. Surgical History Surgical History (Updated 09/12/20 @ 21:05 by Roseann Garcia PA-C) No history of previous surgery Family History Family History Father End stage renal failure on dialysis Social History Social History (Updated 09/12/20 @ 21:06 by Roseann Garcia PA-C) Social History: Surrogate decision maker: Guille White, father. Code status: Full code. Smoking status: Never smoker Alcohol intake: never Substance use: never Additional living arrangements comments: The patient lives in [place] with her father. Additional occupation/education comments: Unemployed. Spiritual care concerns: No Meds Home Medications and Allergies Home Medications Medication Instructions Recorded Confirmed Type Fycompa 8 mg PO HS 05/21/19 09/12/20 History Vimpat 200 mg PO Q12H 05/21/19 09/12/20 History clobazam 20 mg PO HS 05/21/19 09/12/20 History olanzapine 5 mg PO DAILY 07/07/20 09/12/20 History Allergies Allergy/AdvReac Type Severity Reaction Status Date / Time No Known Allergies Allergy Verified 05/21/19 22:53 Vital Signs Vital Signs - 24 hr 09/12/20 15:30 09/12/20 18:18 Temperature 97.4 F L Pulse Rate 103 H 95 Respiratory Rate 16 Blood Pressure 103/60 Pulse Oximetry 98 Exam Narrative: Exam Narrative: General: Mildly ill-appearing female supine in bed in no distress. Weight: 109.6 kilograms. BMI: 44.2. HEENT: Pupils are approximately 5 millimeters and are sluggishly reactive. Sclerae anicteric. Conjunctiva mildly injected. Tacky mucous membranes. Neck: Supple. No JVD. Respiratory: Lungs are clear to auscultation bilaterally. Cardiovascular: Regular rate and rhythm
--- NOTE | 2020-09-12 16:32 | ADMGEN ---
This patient, Randa White, was admitted to 3 Med Surg Room 324-01 at 1530 from [facility]. Report received kash Mcdonald in ED prior to arrival. Patient/family oriented to hospital policies and general routines including ID bracelet, bed and alarms, visiting hours, pain management, procedures, bathroom and other care routines, personal items, smoking policy, room service/diet, and visiting hours. Information on how to activate the Rapid Response Team has been discussed. Patient/Family are encouraged to report perceived risks to care and to ask questions if they do not understand what they are told or what they should do.
[2020-09-12] MEDS: levETIRAcetam IV 750 MG in DEXTROSE 5% 100 ML 430 MG IVPB (17:56)
[2020-09-12 18:18] VITALS: PULSE 95
[2020-09-12 20:00] VITALS: PULSE 94
[2020-09-12 21:25] VITALS: BP 115/56; PULSE 92; RESP 16; TEMP 37.1; O2SAT 97
[2020-09-13] VITALS (9 sets, daily range): BP systolic 82–104; BP diastolic 51–66; PULSE 81–103; RESP 16–20; TEMP 36.2–36.8; O2SAT 95–100
[2020-09-13] MEDS: LACOSAMIDE (*CRX) 200 MG TABLET PO ×3 (00:56→20:52)
--- NOTE | 2020-09-13 01:19 | PHAR ---
PT'S HOME MED: (Perampanel [Fycompa] 2 mg Tablet) VERIFIED BY PHARMACY
[2020-09-13 06:16] LABS: Hematocrit 34.7 % (37.0-47.0); Hemoglobin 11.7 g/dL (12.0-15.0); Mean Corpuscular HGB Conc 33.7 g/dl (32-36); Mean Corpuscular Hemoglobin 31.5 pg (26-34); Mean Corpuscular Volume 93.5 fl (80-100); Mean Platelet Volume 8.7 fl (7.4-10.4); Platelet Count Result 312 k/mm3 (150-375); Red Blood Count 3.71 M/mm3 (4.2-5.4); Red Cell Distribution Width 14.1 % (11.5-14.5); White Blood Count 10.6 K/mm3 (4.5-10.0)
[2020-09-13 06:24] LABS: Alanine Aminotransferase 27 U/L (4-35); Albumin Level 3.9 g/dL (3.5-5.1); Alkaline Phosphatase 97 U/L (38-126); Anion Gap 5 mmol/L (8-16); Aspartate Amino Transferase 30 U/L (14-36); Bilirubin,Total 0.8 mg/dL (0.2-1.3); Blood Urea Nitrogen 12 mg/dL (7-17); Calcium 9.2 mg/dL (8.4-10.2); Carbon Dioxide 29 mmol/L (22-30); Chloride 104 mmol/L (98-107); Estimated CRCL calculation 125 ml/min; Estimated Glomerular Filt Rate > 60; Glucose 105 mg/dL (65-105); Magnesium 2.1 mg/dL (1.6-2.3); Potassium 3.7 mmol/L (3.4-5.0); Sodium 138 mmol/L (137-145)
--- NOTE | 2020-09-13 10:49 | WPDNEURCNPN ---
Assessment and Plan Assessment and plan (1) Breakthrough seizure: Code(s): G40.919 - Epilepsy, unspecified, intractable, without status epilepticus Status: Acute Additional Plan history of emt intermediate epilepsy for which she is under the care of a neurologist at [place] and has been taking multiple medications including clobazam am 20 mg HS, 5 comp a 8 mg HS olanzapine 5 mg daily and lacosamide 200 mg q.12 hours at this stage R exam looks grossly nonfocal but I will have to watch for 24 to 48 hours before changing or adding any medications Consult date: 09/13/20 Time Seen: 10:45 HPI: Randa White is a 25 year old femaleAdmitted to the hospital on transfer from the other institution for the complaints of breakthrough seizures. As per the information available she was taken to the emergency department at the [facility] after she had several breakthrough seizures she has been diagnosed to have epilepsy and carries the diagnosis since the age of 14 reportedly her epilepsy has been difficult to control and she has been on numerous medications in addition to Ativan on p.r.n. basis she has been taking globus am for 3 weeks which she has been out she has had recently 10 tonic-clonic seizure in the last 24 hours he received lorazepam x2 and she was noted early in postictal state when she was seen by the hospitalist after the admission through the ER she gave no history of any other associated symptomatology at this particular time. Review of Systems Review of Systems: All systems reviewed & are unremarkable except as noted in HPI and below PMFSH Past Medical History Medical History Epilepsy Patient of Dr. Altagracia Champion in [place]. Surgical History Surgical History No history of previous surgery Family History Family History Father End stage renal failure on dialysis Social History Social History Social History: Surrogate decision maker: Guille White, father. Code status: Full code. Smoking status: Never smoker Alcohol intake: never Substance use: never Additional living arrangements comments: The patient lives in [place] with her father. Additional occupation/education comments: Unemployed. Spiritual care concerns: No Meds Home Medications and Allergies Home Medications Medication Instructions Recorded Confirmed Type Fycompa 8 mg PO HS 05/21/19 09/12/20 History Vimpat 200 mg PO Q12H 05/21/19 09/12/20 History clobazam 20 mg PO HS 05/21/19 09/12/20 History olanzapine 5 mg PO DAILY 07/07/20 09/12/20 History Allergies Allergy/AdvReac Type Severity Reaction Status Date / Time No Known Allergies Allergy Verified 05/21/19 22:53 Vital Signs Vital Signs - 24 hr 09/12/20 15:30 09/12/20 18:18 09/12/20 20:00 Temperature 36.3 C L Pulse Rate 103 H 95 94 Respiratory Rate 16 Blood Pressure 103/60 Pulse Oximetry 98 09/12/20 21:25 09/13/20 00:00 09/13/20 04:00 Temperature 37.1 C Pulse Rate 92 83 83 Respiratory Rate 16 Blood Pressure 115/56 L Pulse Oximetry 97 09/13/20 06:00 09/13/20 08:00 Temperature 36.2 C L Pulse Rate 81 Respiratory Rate 16 Blood Pressure 82/52 L 101/57 L Pulse Oximetry 99 Exam Const: General: cooperative, no acute distress, alert and awake Nutritional Appearance: obese Orientation/consciousness: oriented to person and oriented to place Limitations: behavioral limitations HENMT: Head: normal to inspection General nose exam: Normal external nose present Face and sinus: normal facial exam Mouth: Yes Normal oral and palatal mucosa present Eyes: General: appearance normal, both eyes and all related structures Visual Ferrara: normal visual ferrara by confrontation Periorbital: periorbital findin
--- NOTE | 2020-09-13 11:20 | WPDNEURCNPN ---
Assessment and Plan Assessment and plan (1) Breakthrough seizure: Code(s): G40.919 - Epilepsy, unspecified, intractable, without status epilepticus Status: Acute Additional Plan intractable epilepsy by history at this stage she is comfortable medications have been continued as such except the addition of Keppra only 1 dose will have to readjust the medication according Consult date: 09/13/20 Time Seen: 11:00 HPI: Randa White is a 25 year old female [facility] Past Medical History Medical History Epilepsy Patient of Dr. Altagracia Champion in [place]. Surgical History Surgical History No history of previous surgery Family History Family History Father End stage renal failure on dialysis Social History Social History Social History: Surrogate decision maker: Guille White, father. Code status: Full code. Smoking status: Never smoker Alcohol intake: never Substance use: never Additional living arrangements comments: The patient lives in [place] with her father. Additional occupation/education comments: Unemployed. Spiritual care concerns: No Meds Home Medications and Allergies Home Medications Medication Instructions Recorded Confirmed Type Fycompa 8 mg PO HS 05/21/19 09/12/20 History Vimpat 200 mg PO Q12H 05/21/19 09/12/20 History clobazam 20 mg PO HS 05/21/19 09/12/20 History olanzapine 5 mg PO DAILY 07/07/20 09/12/20 History Allergies Allergy/AdvReac Type Severity Reaction Status Date / Time No Known Allergies Allergy Verified 05/21/19 22:53 Vital Signs Vital Signs - 24 hr 09/12/20 15:30 09/12/20 18:18 09/12/20 20:00 Temperature 36.3 C L Pulse Rate 103 H 95 94 Respiratory Rate 16 Blood Pressure 103/60 Pulse Oximetry 98 09/12/20 21:25 09/13/20 00:00 09/13/20 04:00 Temperature 37.1 C Pulse Rate 92 83 83 Respiratory Rate 16 Blood Pressure 115/56 L Pulse Oximetry 97 09/13/20 06:00 09/13/20 08:00 Temperature 36.2 C L Pulse Rate 81 86 Respiratory Rate 16 Blood Pressure 82/52 L 101/57 L Pulse Oximetry 99 Exam Const: General: cooperative, no acute distress, alert, awake, anxious, confusion and uncomfortable Nutritional Appearance: obese Orientation/consciousness: oriented to person and oriented to place Limitations: physical limitations HENMT: Head: normal to inspection Ears: hearing grossly normal bilaterally General nose exam: Normal external nose present Face and sinus: normal facial exam Mouth: Yes Normal oral and palatal mucosa present Eyes: General: appearance normal, both eyes and all related structures Alignment and Position: alignment normal Periorbital: periorbital findings normal Eyelids: eyelids normal Conjunctivae: conjunctivae normal Sclera: sclerae normal Cornea: corneas normal Pupils: Equal, round and reactive pupils present and Pupils not reactive Neck: Neck: normal visual inspection Resp: Effort & Inspection: normal respiratory effort and able to speak in complete sentences Auscultation: clear to auscultation bilaterally Cardio: Rate: regular rate Rhythm: regular rhythm GI: Auscultation: normal bowel sounds Skin: General skin exam: no rashes or lesions noted Neuro: General: oriented to person and oriented to place Cranial nerves: Yes CN's II-XII intact bilaterally Cognition (Neuro): normal cognition Speech: normal speech Motor exam (neuro): Abnormal motor strength present Deep tendon reflexes (DTR's): Right triceps reflex intensity grade: 1+, Left triceps reflex intensity grade: 1+, Rt Biceps (C5, C6): 1+, Left biceps reflex intensity grade: 1+, Right brachioradialis reflex intensity grade: 1+, Left brachioradialis reflex intensity grade: 1+, Right patellar reflex intensity grade: 1+,
--- NOTE | 2020-09-13 17:03 | PM.IMPN ---
Progress Note: A&P Assessment and Plan (1) Breakthrough seizure: Code(s): G40.919 - Epilepsy, unspecified, intractable, without status epilepticus Status: Acute Assessment and Plan: recently 10 tonic-clonic seizures in the last 24 hours at [facility], after reportedly due to running out of her meds for 3 weeks. she was then transferred here after having received lorazepam x2 she was in early postictal state when she arrived at [place] no seizure activity overnight or today, at this time alert and oriented x 3, no tremors or staring, cooperative diagnosis since the age of 14 with epilepsy and has been difficult to control Patient of Dr. Altagracia Champion in [place]. (2) Epilepsy: Code(s): G40.909 - Epilepsy, unspecified, not intractable, without status epilepticus Status: Acute Assessment and Plan: intractable epilepsy by history at this stage comfortable with her medications at this time Neurologist added an additional Keppra dose (3) Noncompliance with medication regimen: Code(s): Z91.14 - Patient's other noncompliance with medication regimen Status: Acute Assessment and Plan: history of and family report of consider and discuss again tomorrow, if that contributed Subjective Date/time seen: 09/13/20 17:03 Randa was not very talkative today when I went to see her. She was lying on her right side in bed. She stated that she had been taking her medications, but the nursing staff informed me that her family felt she had the seizure because she had not been taking her meds. She was cooperative with my exam but not forthcoming of information, providing only short answers. The neurologist would like to monitor her for 24-48 hours for seizures and to decide if further medication changes need to be made. She is currently on seizure precautions. She denies any headache or chest pain or shortness of breath or nausea or vomiting or diarrhea at this time Review of Systems Review of Systems: All systems reviewed & are unremarkable except as noted in HPI and below Constitutional: Constitutional: Denies excessive sweating, Denies headache(s), Denies increased appetite, Denies snoring and Denies weight gain Eyes: Eyes: Denies exophthalmos, Denies diplopia, Denies floaters and Denies loss of peripheral vision ENT: Denies facial pain, Denies headache(s), Denies odynophagia and Denies tinnitus Respiratory: Respiratory: Denies snoring Gastrointestinal: Gastrointestinal: Denies odynophagia Neurologic: Reports confusion Psychiatric: Psychiatric: Reports confusion Endocrine: Endocrine: Denies excessive sweating Exam Narrative: Exam Narrative: General: Fatigued female supine in bed in no distress. Weight: 109.6 kilograms. BMI: 44.2. HEENT: Pupils are approximately 3-4 millimeters and are reactive. Sclerae anicteric. Conjunctiva mildly injected. Tacky mucous membranes. Neck: Supple. No JVD. Respiratory: Lungs are clear to auscultation bilaterally. Cardiovascular: Regular rate and rhythm with S1-S2. Gastrointestinal: Abdomen is soft, nontender, and nondistended with positive bowel sounds. Skin: Warm and dry. No rash or lesions on limited exam. Extremities: No cyanosis, clubbing, or edema. Radial and pedal pulses intact. Neurological: Alert and oriented x3. Cranial nerves 2-12 are grossly intact. Speech is clear but slow. No facial asymmetry. Moves upper and lower extremities. Hand wallpaper installer softly and foot pushes equal bilaterally. No gross focal deficits to casual conversation. Psychiatric: Somnolent but cooperative. Euthymic mood. Const: General: cooperative, no acute distress, alert, awake, anxious, confusion and uncomfortable Nutritional Appearance: obese Orientation/consciousness: oriented to person, oriented to place and confusion Limitations: behavioral limitations and physical limitations HENMT: Head: normal to inspection Ears: hearing daniel
[2020-09-14] VITALS: PULSE 96
[2020-09-14 04:00] VITALS: PULSE 80
[2020-09-14 05:55] VITALS: BP 92/69; PULSE 75; RESP 18; TEMP 36.3; O2SAT 97
[2020-09-14 08:00] VITALS: PULSE 89
[2020-09-14] MEDS: LACOSAMIDE (*CRX) 200 MG TABLET PO (08:34)
--- NOTE | 2020-09-14 10:32 | PM.DS ---
DS: Admitting Diagnosis Admitting Diagnosis Admitting Diagnosis: Seizures DS: Discharge Diagnosis Discharge Diagnosis (1) Breakthrough seizure: Code(s): G40.919 - Epilepsy, unspecified, intractable, without status epilepticus Status: Acute Assessment and Plan: Date of Admission 09/12/20 Date of Discharge 09/14/20 Ms. White is a 25yo F with epilepsy and depression who presented to [facility] in transfer from [facility] for neurology evaluation after having reportedly upwards of 10 tonic-clonic seizures at their facility. According to the records, she has been out of two of her seizure medications for two to three weeks. She has been started back on her home medication regimen which includes clobazam, Fycompa, and Vimpat. She has had no further seizure activity while admitted at [place]. She is a patient of Dr Altagracia Taylor in [place], [place]. I called and spoke with his office staff to clarify her medication regimen and notify them of her admission. She has an upcoming follow-up appointment 10/17/20 and recently was admitted at their facility in August 2020 for video EEG. She is hemodynamically stable for discharge on 09/14/20 and was educated on the importance of getting refills on her medications before she runs out. Prescriptions for these medications were printed and sent with patient. (2) Epilepsy: Code(s): G40.909 - Epilepsy, unspecified, not intractable, without status epilepticus Status: Acute (3) Noncompliance with medication regimen: Code(s): Z91.14 - Patient's other noncompliance with medication regimen Status: Acute DS: Summary Hospital Course Hospital Course: See above. Time Spent with Patient Time attestation: Total time spent providing and/or coordinating discharge services: 45 minutes Exam Narrative: Exam Narrative: General: Fatigued female supine in bed in no distress. HEENT: PERRL, Sclerae anicteric. Conjunctiva mildly injected. Tacky mucous membranes. Neck: Supple. No JVD. Respiratory: Lungs are clear to auscultation bilaterally. Cardiovascular: Rate and rhythm regular. Gastrointestinal: Abdomen is soft, nontender, and nondistended with positive bowel sounds. Skin: Warm and dry. No rash or lesions on limited exam. Extremities: No edema or pain to palpation. Radial and pedal pulses intact. Neurological: Alert and oriented x3. Cranial nerves 2-12 are grossly intact. Speech is clear but slow. No facial asymmetry. Moves upper and lower extremities. Hand buffing line set up worker softly and foot pushes equal bilaterally. No gross focal deficits to casual conversation. Psychiatric: Somnolent but cooperative. Euthymic mood. DS: Data Imaging Radiologist's impression: Last Vital Signs Temp 97.4 F L 09/14/20 05:55 Pulse 89 09/14/20 08:00 Resp 18 09/14/20 05:55 BP 92/69 L 09/14/20 05:55 Pulse Ox 97 09/14/20 05:55 Laboratory Tests 09/13/20 06:02 09/13/20 06:02 Discharge Plan Discharge Attending physician on discharge: Dayanara Gaona Consulting providers: Jorge L Argueta ; Roseann Garcia ; Denice Worley ; Nya Vieira Discharging Clinician: Nya Vieira Anticipated Discharge Date/Time: 09/14/20 10:33 Patient Disposition: Home, Self-Care Activity: no driving and other - see discharge instructions Diet: as tolerated Discharge Instructions: Call to schedule a hospital follow up appointment with your primary care provider in 1 to 2 weeks, or sooner if you are feeling worse. Please keep your scheduled appointment with Dr Almonte on 10/17/20 at 2:15PM It is extremely important for you to take all of your medications as prescribed in order to help prevent seizures. Try to make sure your medications are refilled regularly so you can avoid running out of your medications. If you run out of your medications, you need to call Dr Almonte's office immediately.
== END 2020-09-14 16:20 | disposition home or self-care (01) ==
PROVIDERS: Physician Assistant; Admitting Provider Family Medicine; PCP Family Medicine; Visit Provider Hospitalist
DX: G40.919 Epilepsy, unspecified, intractable, without status epilepticus (principal); Z91.14 Patient's other noncompliance with medication regimen
CPT/HCPCS: 36415; 80053; 83735; 85027; 96365; A9270; G0378; G0379; J1953

== ENCOUNTER 2020-10-14 01:57 | Emergency (ER) | payer OTHER, SELFPAY ==
[2020-10-14 02:00] VITALS: BP 120/73; PULSE 98; RESP 20; TEMP 36.6; O2SAT 100
--- NOTE | 2020-10-14 02:32 | ED.SEIZURE ---
HPI - Seizure General Chief Complaint: Seizure Stated Complaint: Seizure Source: patient and EMS Mode of arrival: EMS History of Present Illness HPI Narrative: this is a 25-year-old female with a history of seizure disorder possibly had a seizure prior to arrival after she woke up had a crying episode and went into her father's room her father thought she may had a seizure and called EMS. Currently the patient appears comfortable no seizure activity no tongue biting no bowel or bladder dysfunction no headache no blurry vision no nausea vomiting. MD complaint: possible seizure Onset (ago): hour(s) Witnessed: No Trauma: No Seizure History: Yes Place: home Possible Precipitating Event: stress Related Data Allergies Allergy/AdvReac Type Severity Reaction Status Date / Time No Known Allergies Allergy Verified 05/21/19 22:53 Review of Systems Review of Systems: All systems reviewed & are unremarkable except as noted in HPI and below PMFSH Past Medical History Medical History Epilepsy Patient of Dr. Altagracia Champion in [place]. Surgical History Surgical History No history of previous surgery Family History Family History Father End stage renal failure on dialysis Social History Social History Social History: Surrogate decision maker: Guille White, father. Code status: Full code. Smoking status: Never smoker Alcohol intake: never Substance use: never Additional living arrangements comments: The patient lives in [place] with her father. Additional occupation/education comments: Unemployed. Spiritual care concerns: No Exam Const: General: no acute distress and alert Orientation/consciousness: patient oriented x3 HENMT: Head: normal to inspection Eyes: Pupils: Equal, round and reactive pupils present Neck: Neck: normal visual inspection, no lymphadenopathy and no meningeal signs Chest: Chest palpation & inspection: normal inspection of the chest Resp: Effort & Inspection: normal respiratory effort Cardio: Rate: regular rate Rhythm: regular rhythm GI: GI Palp: Yes Soft to palpation : General: Yes no CVA tenderness Urinary Catheter: Urinary Catheter: patent and draining Skin: General skin exam: normal color Rashes: no rashes Neuro: General: patient oriented x3, moves all extremities, no meningeal signs and no focal motor deficits Extrem: General: normal to inspection and no pedal edema Psych: Mental Status: mental status grossly normal Affect: normal affect Thought content: Yes Normal thought content present Course Course Emergency Course: Patient currently resting comfortably, no seizure no fever chills no nausea vomiting. Vital Signs Vital signs: Vital Signs Temperature 36.6 C 10/14/20 02:00 Pulse Rate 98 10/14/20 02:00 Respiratory Rate 20 10/14/20 02:00 Blood Pressure 120/73 10/14/20 02:00 Pulse Oximetry 100 10/14/20 02:00 Temperature 36.6 C 10/14/20 02:00 Pulse Rate 98 10/14/20 02:00 Respiratory Rate 20 10/14/20 02:00 Blood Pressure 120/73 10/14/20 02:00 Pulse Oximetry 100 10/14/20 02:00 Critical Care Time Critical Care Time Critical Care Time: No Discharge Plan Discharge Clinical Impression: Seizures Patient Disposition: Home, Self-Care Condition: Stable Instructions: Antibiotic Form, Epilepsy (ED) Additional Instructions: Continue current medication, and follow-up with primary care physician within the next 1 to 2 days as scheduled. Prescriptions: No Action olanzapine 10 mg tablet 5 mg PO BID 30 Days Qty: 30 RF: 0 Vimpat 200 mg Tablet 200 mg PO Q12H 30 Days Qty: 60 RF: 0 clobazam 10 mg Tablet 20 mg PO HS 30 Days Qty: 60 RF: 0 Fycompa 2 mg T
--- NOTE | 2020-10-14 02:48 | PC.NURSE ---
Pt. is alert, walking in hallway to restroom, call back from pts father and he states her cousin is coming to get her. VSS.
[2020-10-14 02:52] VITALS: BP 110/66; PULSE 80; RESP 18; O2SAT 100
== END 2020-10-14 02:53 | disposition home or self-care (01) ==
PROVIDERS: Emergency Provider Emergency Medicine; PCP Family Medicine
DX: G40.909 Epilepsy, unspecified, not intractable, without status epilepticus (principal)
CPT/HCPCS: 99282; 99283

== ENCOUNTER 2020-10-14 10:57 | Emergency (ER) | payer OTHER, SELFPAY ==
--- NOTE | ~2020-10-14 | XR_ITS ---
EXAMINATION: XR chest 2V EXAM DATE: 10/14/2020 12:42 INDICATION: White blood cell elevation. Possible aspiration. TECHNIQUE: Frontal and lateral projections of the chest obtained and reviewed. Comparison is made to prior examination from 07/07/2020. FINDINGS: Small amount of right midlung zone reticulonodular airspace disease identified, could be d eveloping acute infectious process. The lungs are otherwise clear. There are no pleural effusions. The cardiomediastinal silhouette is within normal limits. There is no pneumothorax suspected. The b ones and soft tissues are unremarkable. IMPRESSION: Development of right midlung zone reticulonodular opacities, could be acute infectious pr ocess. Reviewed, dictated and finalized at location A. IMPRESSION: Development of right midlung zone reticulonodular opacities, could be acute infectious process.
[2020-10-14 11:25] VITALS: BP 110/64; PULSE 116; RESP 20; TEMP 36.7; O2SAT 95
[2020-10-14] MEDS: diazePAM INJ (*CRX) 10 MG/2 ML SYRINGE IM (11:25)
[2020-10-14 11:39] LABS: Basophils Absolute Auto 0.04 K/mm3 (0.00-0.10); Basophils Percent Auto 0.2 % (0.0-1.0); Eosinophils Absolute Auto 0.01 K/mm3 (0.02-0.50); Eosinophils Percent Auto 0.1 % (1.0-6.0); Hematocrit 34.4 % (35.0-49.0); Hemoglobin 11.5 g/dL (12.0-15.0); Immature Granulocyte Absolute 0.07 K/mm3 (0.00-0.00); Immature Granulocyte Percent A 0.4 % (0.0-0.0); Lymphocytes Absolute Auto 1.25 K/mm3 (1.10-4.50); Lymphocytes Percent Auto 6.5 % (18.0-42.0); Mean Corpuscular HGB Conc 33.4 g/dL (32.0-36.0); Mean Corpuscular Hemoglobin 31.1 pg (27.0-31.0); Mean Platelet Volume 8.9 fl (9.2-11.8); Monocytes Absolute Auto 0.78 K/mm3 (0.10-0.90); Monocytes Percent Auto 4.1 % (2.0-11.0); Neutrophils Absolute Auto 16.9 K/mm3 (1.7-7.2); Neutrophils Percent Auto 88.7 % (50.0-70.0); Platelet Count Result 321 K/mm3 (150-420); Red Cell Distribution Width 14.3 % (11.6-14.4); White Blood Count 19.1 K/mm3 (4.8-10.8)
[2020-10-14 11:52] LABS: Alanine Aminotransferase 44 U/L (14-59); Albumin Level 3.4 g/dL (3.4-5.0); Alkaline Phosphatase 119 U/L (46-116); Anion Gap 10 mmol/L (8-16); Aspartate Amino Transferase 29 U/L (15-37); Bilirubin,Total 0.7 mg/dL (0.00-1.00); Blood Urea Nitrogen 9 mg/dL (7-18); Calcium 8.7 mg/dL (8.5-10.1); Carbon Dioxide 26 mmol/L (21-32); Chloride 101 mmol/L (98-108); Estimated CRCL calculation 93 ml/min; Estimated Glomerular Filt Rate > 60; Glucose 94 mg/dL (70-99); Osmolality Calculated 282 mOsm/kg (285-295); Sodium 137 mmol/L (136-145); Total Protein 7.7 g/dL (6.4-8.2)
[2020-10-14 12:00] VITALS: BP 110/67; PULSE 112; RESP 20; O2SAT 98
[2020-10-14 12:45] LABS: Add Urine Microscopic? NO; Appearance Urine Clear (Clear); Bilirubin Urine Negative (Negative); Blood Urine Negative (Negative); Color Urine Yellow (Yellow); Glucose Urine UA Negative (Negative); Ketones Urine Negative (Negative); Leukocyte Esterase Ur Negative LEU/UL (Negative); Nitrate Urine Negative (Negative); Protein Urine Negative (Negative); Urobilinogen Urine 0.2 mg/dL (0.2-1.0); pH Urine 7.5 (5.0-8.0)
[2020-10-14 13:45] VITALS: BP 111/70; PULSE 104; RESP 20; O2SAT 97
--- NOTE | 2020-10-14 13:56 | ED.SEIZURE ---
HPI - Seizure General Chief Complaint: Seizure Stated Complaint: ambulance Time Seen by Provider: 10/14/20 11:30 Source: patient Mode of arrival: ambulatory Limitations: no limitations History of Present Illness HPI Narrative: Patient comes in after having seizure or pseudoseizure at home. She is bought in again because of concerns of parents. She has an appointment early next week to see her neurologist who prescribes her medications for this. She has repeatedly continued to have these seizures / pseudoseizures at home which are usually very brief. This one reportedly was 4 minutes long in total which worried the parents. This was felt to be severe, long lasting by parents, lasting 4 minutes and of more concern, with some movements that were felt to resemble tonic clonic movements. She was sent home from the ER yesterday, and amazingly has missed her medications again, which may have precipitated this event. MD complaint: possible seizure Seizure History: Yes Related Data Allergies Allergy/AdvReac Type Severity Reaction Status Date / Time No Known Allergies Allergy Verified 10/14/20 11:45 Review of Systems Constitutional: Constitutional: Reports no additional constitutional complaints Eyes: Eyes: Reports no additional eye complaints ENT: Reports system reviewed and no additional complaints, except as documented Cardiovascular: Cardiovascular: Reports no additional cardiovascular complaints Respiratory: Respiratory: Reports no additional respiratory complaints Gastrointestinal: Gastrointestinal: Reports no additional gastrointestinal complaints Genitourinary: Genitourinary: Reports no additional female genitourinary complaints Musculoskeletal: Musculoskeletal: Reports no additional musculoskeletal complaints Integumentary/Breasts: Skin/Breast: Reports system reviewed and no additional complaints, except as docu Neurologic: Reports system reviewed and no additional complaints, except as documented Psychiatric: Psychiatric: Reports no additional psychiatric complaints Endocrine: Endocrine: Reports no additional endocrine complaints Hematologic/Lymphatic: Hematologic/Lymphatic: Reports no additional hematologic/lymphatic complaints Allergic/Immunologic: Allergic/Immunologic: Reports no additional allergic/immunologic complaints [facility] Past Medical History Medical History Epilepsy Patient of Dr. Altagracia Champion in [place]. Surgical History Surgical History No history of previous surgery Family History Family History Father End stage renal failure on dialysis Social History Social History Social History: Surrogate decision maker: Guille White, father. Code status: Full code. Smoking status: Never smoker Alcohol intake: never Substance use: never Additional living arrangements comments: The patient lives in [place] with her father. Additional occupation/education comments: Unemployed. Gender identity (if verbalized by the patient): Female Spiritual care concerns: No Exam Const: General: no acute distress and alert Orientation/consciousness: patient oriented x3 HENMT: Head: normal to inspection Ears: external ears normal General nose exam: Normal external nose present Mouth: Yes Normal oral and palatal mucosa present Throat: posterior oropharynx normal Eyes: Conjunctivae: conjunctivae normal Neck: Neck: normal visual inspection Chest: Chest palpation & inspection: normal inspection of the chest Resp: Effort & Inspection: normal respiratory effort Auscultation: clear to auscultation bilaterally Cardio: Rate: regular rate Rhythm: regular rhythm GI: Auscultation: normal bowel sounds (soft non tender) Skin: General skin exam: normal color Neuro: General:
[2020-10-14] MEDS: LIDOCAINE HCL 1% LOCAL INJ 20 ML VIAL (14:49)
[2020-10-14] MEDS: cefTRIAXone 1 GM VIAL IM (14:49)
[2020-10-14 15:15] VITALS: BP 112/88; PULSE 106; RESP 20; O2SAT 98
[2020-10-14 18:55] VITALS: BP 133/71; PULSE 105; RESP 20; TEMP 36.9; O2SAT 96
--- NOTE | 2020-10-14 18:59 | PC.NURSE ---
1600 PT HAD NO SEIZURE ACTIVITY DURING HER STAY IN THE ER
== END 2020-10-14 16:30 | disposition home or self-care (01) ==
PROVIDERS: Emergency Provider Emergency Medicine; PCP Family Medicine
DX: G40.909 Epilepsy, unspecified, not intractable, without status epilepticus (principal)
CPT/HCPCS: 36415; 51701; 71046; 80053; 81003; 85025; 96372; 99283; 99284; J0696; J3360

== ENCOUNTER 2021-06-11 13:15 | Observation (INO) | payer OTHER, SELFPAY ==
[2021-06-11] VITALS (7 sets, daily range): BP systolic 97–132; BP diastolic 54–89; PULSE 76–101; RESP 14–24; TEMP 36.6; O2SAT 90–96; BMI 39.8
--- NOTE | ~2021-06-11 | CT_ITS ---
EXAMINATION: CT brain wo con EXAM DATE: 06/11/2021 21:25 INDICATION: Drowsiness after multiple seizures today. pt restless. TECHNIQUE: Spiral CT of the head was performed without contrast. Axial, coronal and sagittal images were reviewed. The dose-length product (DLP) for this examination was 681.00 mGy-cm. The exposure w as tailored according to patient size, and iterative reconstruction (ASIR) was used as additional dos e reduction technique. Comparison is made to prior examination from 06/27/2020. FINDINGS: There is no acute intraparenchymal hemorrhage. No evidence of intraparenchymal brain mass lesion. No evidence of acute infarction. There is no mass effect or midline shift. The ventricles are normal in size. There are no extra-axial collections. There are no acute calvarial fractures. T he orbits are unremarkable. Soft tissue is unremarkable. The visualized sinuses and mastoid air kathryn ls are well aerated. IMPRESSION: 1. Unremarkable head CT examination. Reviewed, dictated and finalized at location G. CTOR OF EMERGENCY NURSING
--- NOTE | ~2021-06-11 | XR_ITS ---
EXAMINATION: XR chest 1V portable EXAM DATE: 06/11/2021 14:53 INDICATION: leucocytosis, syncope, seizures, awake but unresponsive TECHNIQUE: Frontal and lateral projections of the chest obtained and reviewed. Comparison is made to prior examination from 10/14/20. FINDINGS: The lungs are clear. There are no pleural effusions. The cardiomediastinal silhouette is within normal limits. There is no pneumothorax suspected. The bones and soft tissues are unremarkab le. IMPRESSION: No acute cardiopulmonary findings. Reviewed, dictated and finalized at location G. DEVELOPER
--- NOTE | 2021-06-11 13:49 | PC.NURSE ---
Pt has abrasion noted to her right arm and left cheek.
--- NOTE | 2021-06-11 13:55 | PC.NURSE ---
1320 When pt arrived RN padded railing with blankets. Suction and oxygen also at bedside.
[2021-06-11] MEDS: SODIUM CHLORIDE 0.9% IV 500 ML 999 ML IV CONT (14:23)
[2021-06-11 14:27] LABS: Basophils Absolute Auto 0.04 K/mm3 (0.00-0.10); Basophils Percent Auto 0.2 % (0.0-1.0); Eosinophils Absolute Auto 0.03 K/mm3 (0.02-0.50); Eosinophils Percent Auto 0.2 % (1.0-6.0); Hematocrit 36.7 % (35.0-49.0); Hemoglobin 12.6 g/dL (12.0-15.0); Immature Granulocyte Absolute 0.08 K/mm3 (0.00-0.00); Immature Granulocyte Percent A 0.5 % (0.0-0.0); Lymphocytes Absolute Auto 1.36 K/mm3 (1.10-4.50); Lymphocytes Percent Auto 7.7 % (18.0-42.0); Mean Corpuscular HGB Conc 34.3 g/dL (32.0-36.0); Mean Corpuscular Hemoglobin 32.6 pg (27.0-31.0); Mean Corpuscular Volume 95.1 fL (78.0-102.0); Mean Platelet Volume 9.3 fl (9.2-11.8); Monocytes Absolute Auto 0.51 K/mm3 (0.10-0.90); Monocytes Percent Auto 2.9 % (2.0-11.0); Neutrophils Absolute Auto 15.6 K/mm3 (1.7-7.2); Neutrophils Percent Auto 88.5 % (50.0-70.0); Platelet Count Result 330 K/mm3 (150-420); Red Blood Count 3.86 M/mm3 (4.20-5.40); Red Cell Distribution Width 13.8 % (11.6-14.4); White Blood Count 17.7 K/mm3 (4.8-10.8)
--- NOTE | 2021-06-11 14:29 | PC.NURSE ---
Leslie from pharmacy called stating we do not have Vimpat on formulary. Pt has bottle at bedside. Leslie from [facility] came down to verify pill bottle and placed into a sepearate container and verified. Pt is still lethargic at this time will monitor swallowing before giving a pill.
[2021-06-11 14:37] LABS: SPREG INTERNAL CONTROL Positive; Serum Qual hCG Negative
--- NOTE | 2021-06-11 14:41 | PHAR ---
verified pt.'s home med lacosamide 200mg tabs (pharmacy does not stock). tls
[2021-06-11 14:43] LABS: Alanine Aminotransferase 29 U/L (14-59); Albumin Level 3.5 g/dL (3.4-5.0); Alkaline Phosphatase 106 U/L (46-116); Anion Gap 10 mmol/L (8-16); Aspartate Amino Transferase 18 U/L (15-37); Bilirubin,Total 0.5 mg/dL (0.00-1.00); Blood Urea Nitrogen 9 mg/dL (7-18); Calcium 8.7 mg/dL (8.5-10.1); Carbon Dioxide 25 mmol/L (21-32); Chloride 103 mmol/L (98-108); Estimated CRCL calculation 129 ml/min; Estimated Glomerular Filt Rate > 60; Glucose 96 mg/dL (70-99); Osmolality Calculated 284 mOsm/kg (285-295); Potassium 4.1 mmol/L (3.5-5.1); Sodium 138 mmol/L (136-145); Total Protein 7.7 g/dL (6.4-8.2)
--- NOTE | 2021-06-11 15:10 | PC.NURSE ---
Pt had a seizure lasting 30 second. Pt maintained sats oral suction performed. ERP called to bedside. Pt still to lethargic for VImpat. RN called pts neurologist Kevin Hernandez at 1508.
--- NOTE | 2021-06-11 15:40 | PC.NURSE ---
[facility] to our Neurologist
--- NOTE | 2021-06-11 16:14 | PC.NURSE ---
[facility] attempting to reach the neurologist that is water pumping station engineer. Attempted the office, the exchange, Finally able to reach through cell phone. HUYEN Echevarria speaking with Neurologist at this time.
--- NOTE | 2021-06-11 16:16 | PC.NURSE ---
Pt had another episode of seizure. ERP made aware lasting 25 seconds. Suction pt at bedside. Pt very lethargic at this time.
[2021-06-11] MEDS: levETIRAcetam 1000MG/NACL100ML 1,000 MG/100 ML BAG 400 MG IVPB (16:32)
[2021-06-11] MEDS: SODIUM CHLORIDE 0.9% IV 100 ML 400 ML (16:34)
--- NOTE | 2021-06-11 17:08 | PC.NURSE ---
KOBY and Radha WHALEN attempted to straight cath pt for urine sample. Unable to obtain urine when straight cathing pt. Pt had been incontinent of urine and placed on new linens.
--- NOTE | 2021-06-11 17:33 | ED.SEIZURE ---
HPI - Seizure General Chief Complaint: Seizure Stated Complaint: AMBULANCE Time Seen by Provider: 06/11/21 13:15 Source: family, EMS and RN notes reviewed Mode of arrival: EMS Limitations: other (pt was very drowsy, but responded to sternal rub and communicated by opening eyes and non-verbal answers.) History of Present Illness complaint: seizure Onset (ago): hour(s) (2) Description of Episode: post-event confusion -: minutes(s) Trauma: No Seizure History: Yes Place: home Possible Precipitating Event: none Treatments prior to arrival: other (see EMS report.) Related Data Home Medications Medication Instructions Recorded Confirmed clobazam 40 mg PO HS 06/11/21 06/11/21 Allergies Allergy/AdvReac Type Severity Reaction Status Date / Time No Known Allergies Allergy Verified 06/11/21 13:30 Review of Systems Review of Systems: All systems reviewed & are unremarkable except as noted in HPI and below PMFSH Past Medical History Medical History Breakthrough seizure Epilepsy Patient of Dr. Altagracia Champion in [place]. Surgical History Surgical History No history of previous surgery Family History Family History Father End stage renal failure on dialysis Social History Social History Social History: Surrogate decision maker: Guille White, father. Code status: Full code. Smoking status: Never smoker Second hand tobacco smoke exposure: No Alcohol intake: never Substance use: never Additional living arrangements comments: The patient lives in [place] with her father. Additional occupation/education comments: Unemployed. Gender identity (if verbalized by the patient): Female Spiritual care concerns: No Exam Const: Limitations: other limitations (pt was post-ictal and very drowsy. she was responsive but non-verbal.. n) HENMT: Head: normal to inspection Ears: external ears normal and TM's normal bilaterally General nose exam: Normal external nose present and Normal nares present Face and sinus: normal facial exam Mouth: Yes lip normal and Yes moist mucous membranes Throat: posterior oropharynx normal Eyes: Conjunctivae: conjunctivae normal Pupils: Equal, round and reactive pupils present EOM: EOMs intact bilaterally Other: Pt opened eys with sternal rub and occasionally when spoken to. Neck: Neck: normal visual inspection Other: supple neck.. no acute focal neuro deficit. Chest: Chest palpation & inspection: normal inspection of the chest Resp: Effort & Inspection: normal respiratory effort Auscultation: clear to auscultation bilaterally Cardio: Rate: regular rate Rhythm: regular rhythm GI: Auscultation: normal bowel sounds : General: Yes bladder normal to palpation and Yes no CVA tenderness Back/Spine/Pelvis: Back: no CVA tenderness Skin: General skin exam: normal color Rashes: no rashes Neuro: General: patient oriented x3, moves all extremities, no meningeal signs, no focal motor deficits and CN's II-XI intact bilaterally Cranial nerves: Yes Nystagmus not present Extrem: General: normal to inspection and no pedal edema Psych: Attitude: cooperative Other: Pt did not speak. Course Course Emergency Course: Pt was admitted to Observation, and was more responsive after IV Narcan and Romazicon. single 15 sec seizure in the ED, with no recurrence. Pt was given IV Keppra on consult with Neurologist Dr Jordan. Reevaluation(s) Reevaluation #1: Pt was stable but drowsy/post-ictal. Date: 06/11/21 Time: 14:30 Vital Signs Vital signs: Vital Signs Temperature 36.6 C 06/11/21 13:15 Pulse Rate 87 06/11/21 13:15 Respiratory Rate 14 06/11/21 13:15 Blood Pressure 106/60 06/11/21 13:15 Pulse Oximetry 94 06/11/21 13
--- NOTE | 2021-06-11 17:58 | PC.NURSE ---
Pt is up for discharge at this time. Pt still appears to be lethargic. Will not discharge at this time. Will continue to monitor. Will discharge when pts mental status improves.
--- NOTE | 2021-06-11 19:13 | PC.NURSE ---
Report given to Christiano WHALEN
--- NOTE | 2021-06-11 19:16 | PC.NURSE ---
Pt still lethargic and responding to painful stimuli. Christiano WHALEN made aware of pts condition and plan for discharge. RN discussed concerns for mental status at this time [facility]
--- NOTE | 2021-06-11 19:33 | PC.NURSE ---
Took Pt report from Herman RN at this time. Went in to caitlin Pt. Pt. difficult to arouse with verbal stimuli. Pt. eyes open only yo painful; stimuli. Dr. Echevarria called and asked to come reassess Pt. for admisssion to Hosp R/T pt. family dynamic. Father in a w/c and on dialysis himself.
--- NOTE | 2021-06-11 20:05 | PC.NURSE ---
Dr rivas in to see Pt at this time. Pt cont unarousable to verbal, arousable eyes open only to verbal stimuli with moaning.
--- NOTE | 2021-06-11 20:29 | ECG_ITS ---
Measurements Intervals [place] Rate: 101 P: 48 IA: 143 QRS: 49 QRSD: 86 T: 38 QT: 322 QTc: 418 Interpretive Statements SINUS TACHYCARDIA BORDERLINE ECG Electronically Signed On 06-12-2021 6:34:20 WELDING MACHINE SETTER by Eamon Emanuel D.O.
[2021-06-11 20:50] LABS: Add Urine Microscopic? NO; Appearance Urine Clear (Clear); Bilirubin Urine Negative (Negative); Blood Urine Negative (Negative); Color Urine Yellow (Yellow); Glucose Urine UA Negative (Negative); Ketones Urine Negative (Negative); Leukocyte Esterase Ur Negative (Negative); Nitrate Urine Negative (Negative); Protein Urine Negative (Negative); Specific Grav Ur >= 1.030 (1.010-1.020); Urobilinogen Urine 0.2 mg/dL (0.2-1.0)
--- NOTE | 2021-06-11 21:28 | PC.NURSE ---
212: Pt to Ct accompanied by this RN via stretcher.. Pt. remains responsive now to verbal stimuli eyes open and moaning/crying. Noted tracking with her eyes but no coherant verbal responses. 21:27: Pt. returned to Rm #[address] 0 change in condition.
[2021-06-11] MEDS: NALOXONE HCL 0.4 MG/ML VIAL IV PUSH ×2 (21:40→22:19)
[2021-06-11] MEDS: SODIUM CHLORIDE 0.9% IV 1,000 ML 999 ML IV CONT (21:41)
[2021-06-11] MEDS: flumazeniL 0.5 MG/5 ML VIAL 0.2 MG IV PUSH ×2 (21:43→22:25)
[2021-06-11 22:29] LABS: Ethanol < 3 mg/dL (0-6); Troponin I 4.1 ng/L (0.00-60.4)
[2021-06-11 22:30] LABS: Acetaminophen < 2 ug/mL (10-30); Salicylate < 0.3 mg/dL (2.8-20.0)
[2021-06-11 23:04] LABS: SARS-CoV-2 Ag Negative (Negative)
--- NOTE | 2021-06-11 23:22 | PC.NURSE ---
Dr Echevarria spoke with Db BAUER called orders to admit recieved.
--- NOTE | 2021-06-11 23:31 | PCDIET ---
nurse to nurse report called to Yamilka WHALEN. Pt sleeping at intervals. Conditin somewhat improved.
[2021-06-11 23:50] LABS: Amphetamine Screen Urine Negative (Negative); Barbiturate Screen Urine Negative (Negative); Benzodiazepines Screen Urine Positive (Negative); Cannabinoid Screen Urine Negative (Negative); Cocaine Screen Urine Negative (Negative); Methadone Screen Urine Negative (Negative); Opiate Screen Urine Negative (Negative); Phencyclidine Screen Urine Negative (Negative)
[2021-06-12] VITALS: BP 102/64; PULSE 98; RESP 20; TEMP 36.9; O2SAT 96
--- NOTE | 2021-06-12 00:02 | PC.NURSE ---
Pt belongings sheet completed. Pt Clear Plastic Baggie with home meds to include Vimpat were placed on belongings sheet and sent up with Pt. Nurse Vincent signed as rosemarie.
[2021-06-12 00:04] VITALS: BP 129/79; PULSE 96; RESP 20; TEMP 36.6; O2SAT 100
[2021-06-12] MEDS: SODIUM CHLORIDE 0.9% IV 1,000 ML 100 ML IV CONT ×3 (00:36→22:25)
--- NOTE | 2021-06-12 02:40 | ADMGEN ---
This patient, Randa White, was admitted to 2nd Floor Room 206-1. Patient/family oriented to hospital policies and general routines including ID bracelet, bed and alarms, pain management, procedures, bathroom and other care routines, personal items, smoking policy, room service/diet, and visiting hours. Information on how to activate the Rapid Response Team has been discussed. Patient/Family are encouraged to report perceived risks to care and to ask questions if they do not understand what they are told or what they should do.
--- NOTE | 2021-06-12 06:51 | PM.IMHP ---
H&P: HPI History of Present Illness Date/Time: 06/12/21 06:51 Narrative: This is a 25-year-old female with epilepsy presented to the emergency room and was having several seziures per report from the nurse. Patient is a bit somnolent at this time of my evaluation and is unable to answer many of my question except for a few slow yes and no's From reading her old charts patient was diagnosed with epilepsy around the age of 14 or 15 and she is followed by Dr. Altagracia Champion who is with [facility] in [place]. It has been noted that Mrs White epilepsy has been difficult to control and she is on numerous medications including p.o. Ativan ?as needed for seizures.? The emergency room MD called and discussed with Dr Durham wanted to Increase to Vimpat 250mg bid ----based on d/w Neurologist Dr Durham although patient is still not really responding. Currently is post dictal and has no complaints Gregory catheter in place. She denies headache, body aches, myalgias, fever, chills, sweats, neck ache, cold and flu symptoms, chest pain, shortness of breath, nausea, vomiting, diarrhea, and dysuria. Patient will continued to be monitored for seizures and continue to get her medication . Chief Complaint: Clonic tonic seizures uncontrolled Review of Systems Review of Systems: skin; Abrasion on face left side All systems reviewed & are unremarkable except as noted in HPI and below PMFSH Past Medical History Medical History Breakthrough seizure Epilepsy Patient of Dr. Altagracia Champion in [place]. Surgical History Surgical History No history of previous surgery Family History Family History Father End stage renal failure on dialysis Social History Social History Social History: Surrogate decision maker: Guille White, father. Code status: Full code. Smoking status: Never smoker Second hand tobacco smoke exposure: No Alcohol intake: never Substance use: never Additional living arrangements comments: The patient lives in [place] with her father. Additional occupation/education comments: Unemployed. Gender identity (if verbalized by the patient): Female Spiritual care concerns: No Meds Home Medications and Allergies Home Medications Medication Instructions Recorded Confirmed Type Fycompa 8 mg PO HS 30 Days #120 tablet 09/14/20 06/11/21 Rx Vimpat 200 mg PO Q12H 30 Days #60 tablet 09/14/20 06/11/21 Rx clobazam 40 mg PO HS 06/11/21 06/11/21 History lacosamide [Vimpat] 50 mg PO Q12H 30 Days #60 tablet 06/11/21 Rx Allergies Allergy/AdvReac Type Severity Reaction Status Date / Time No Known Allergies Allergy Verified 06/11/21 13:30 Vital Signs Vital Signs - 24 hr 06/11/21 13:15 06/11/21 15:41 06/11/21 16:36 Temperature 97.8 F Pulse Rate 100 94 101 H Respiratory Rate 14 16 20 Blood Pressure 106/60 118/74 132/89 Pulse Oximetry 94 94 90 06/11/21 17:08 06/11/21 18:00 06/11/21 18:35 Temperature Pulse Rate 89 78 76 Respiratory Rate 24 H 18 18 Blood Pressure 130/85 97/54 L 100/60 Pulse Oximetry 94 94 94 06/11/21 19:13 06/12/21 00:00 06/12/21 00:04 Temperature 98.5 F 97.8 F Pulse Rate 90 98 96 Respiratory Rate 20 20 20 Blood Pressure 104/62 102/64 129/79 Pulse Oximetry 96 96 100 Exam Narrative: GENERAL:Well-appearing, and in no acute distress.lethargic slow to respond HEAD:Normocephalic, EYES: PERRLA ENT: Nares clear, Mucous membranes moist. CHEST: Clear to auscultation. No respiratory distress. HEART: Regular rate and rhythm. ABDOMEN: Soft, nontender, nondistended, normal active bowel sounds. EXTREMITIES: Normal range of motion. No edema. SKIN: Warm, dry, no rash. facial abrasion on the left side of face NEURO: somnolent . A
[2021-06-12 07:09] LABS: Alanine Aminotransferase 23 U/L (14-59); Alkaline Phosphatase 91 U/L (46-116); Anion Gap 10 mmol/L (8-16); Aspartate Amino Transferase 21 U/L (15-37); Bilirubin,Total 0.9 mg/dL (0.00-1.00); Blood Urea Nitrogen 9 mg/dL (7-18); Calcium 7.9 mg/dL (8.5-10.1); Carbon Dioxide 25 mmol/L (21-32); Chloride 103 mmol/L (98-108); Estimated CRCL calculation 137 ml/min; Estimated Glomerular Filt Rate > 60; Glucose 104 mg/dL (70-99); Magnesium 1.9 mg/dL (1.8-2.4); Osmolality Calculated 284 mOsm/kg (285-295); Potassium 3.3 mmol/L (3.5-5.1); Sodium 138 mmol/L (136-145); Total Protein 7.2 g/dL (6.4-8.2)
[2021-06-12 08:00] VITALS: BP 106/63; PULSE 72; RESP 18; TEMP 36.2; O2SAT 95
[2021-06-12] MEDS: ENOXAPARIN 40 MG/0.4 ML SYRINGE SUB-Q (08:45)
[2021-06-12] MEDS: LACOSAMIDE (*CRX) 200 MG TABLET PO ×2 (11:25→21:40)
[2021-06-12 16:00] VITALS: BP 116/78; PULSE 85; RESP 18; TEMP 36.6; O2SAT 95
--- NOTE | 2021-06-12 17:00 | PC.NURSE ---
Service Now Developer observed patient holding arm at IV insertion site. Upon inspection, area appears pale and cool, infiltration. IV site discontinued.
[2021-06-12 23:04] VITALS: BP 112/65; PULSE 92; RESP 18; TEMP 36.8; O2SAT 97
--- NOTE | 2021-06-13 07:40 | PHAR ---
verified pt.'s home meds Vimpat and Fycompa. spoke with WIRE COATING MACHINE OPERATOR and she said ER doc spoke with neurologist and they wish to increase Vimpat to 250mg BID. [facility], and it is a controlled substance so cannot borrow from [facility]. ordered drug but did not deliver our order thu or due to weather. increasing her dose to 250mg bid as prescribed to start thursday after order of 50mg tabs will be here. tls
[2021-06-13 08:00] VITALS: BP 119/82; PULSE 81; RESP 16; TEMP 36.3; O2SAT 94
[2021-06-13 08:03] LABS: Hematocrit 32.2 % (35.0-49.0); Hemoglobin 10.8 g/dL (12.0-15.0); Mean Corpuscular HGB Conc 33.5 g/dL (32.0-36.0); Mean Corpuscular Volume 95.3 fL (78.0-102.0); Platelet Count Result 270 K/mm3 (150-420); Red Blood Count 3.38 M/mm3 (4.20-5.40); Red Cell Distribution Width 13.7 % (11.6-14.4); White Blood Count 10.2 K/mm3 (4.8-10.8)
[2021-06-13 08:20] LABS: Anion Gap 10 mmol/L (8-16); Blood Urea Nitrogen 7 mg/dL (7-18); Calcium 7.8 mg/dL (8.5-10.1); Carbon Dioxide 26 mmol/L (21-32); Chloride 105 mmol/L (98-108); Estimated CRCL calculation 151 ml/min; Estimated Glomerular Filt Rate > 60; Glucose 104 mg/dL (70-99); Osmolality Calculated 290 mOsm/kg (285-295); Potassium 3.3 mmol/L (3.5-5.1); Sodium 141 mmol/L (136-145)
--- NOTE | 2021-06-13 08:21 | PM.IMPN ---
Progress Note: A&P Assessment and Plan (1) Leucocytosis: Code(s): D72.829 - Elevated white blood cell count, unspecified Status: Acute Assessment and Plan: WBC17....10.2 resolved Patient not in need of any any antibiotic or further issues with this (2) Breakthrough seizure: Code(s): G40.919 - Epilepsy, unspecified, intractable, without status epilepticus Status: Acute Assessment and Plan: No seizures since admission Will continue with oral medication Will have phsyical therapy to assess for possible safe return home for today and or tomorrow. (3) Weakness: Code(s): R53.1 - Weakness Status: Acute Assessment and Plan: Physical therapy will assess for needs and ability for home Patient is on fall precaution. Seizure precaution Subjective Date/time seen: 06/13/21 08:21 MRS. MOORE has not had any seizures since she has been admitted today she is more Alert although still slowing moving and slow to answer taking medication at this time we will have phsyical therapy to assess patient to ensure that she is safe for return home. We will continue to monitor for seizure like activity and to administer oral medication Review of Systems Review of Systems: Lethargic improving abrasion to left side of face All systems reviewed & are unremarkable except as noted in HPI and below Exam Narrative: GENERAL:Well-appearing, slow moving , and in no acute distress. HEAD:Normocephalic, EYES: PERRLA . ENT: Nares clear, Mucous membranes moist. CHEST: Clear to auscultation. No respiratory distress. HEART: Regular rate and rhythm. Normal peripheral pulses. ABDOMEN: Soft, nontender, nondistended, normal active bowel sounds. EXTREMITIES: Normal range of motion. No edema. SKIN: Warm, dry, no rash. NEURO: No focal deficits. Alert and oriented x3. Objective Data Vital Signs Vital Signs: Vital Signs - 24 hr 06/12/21 16:00 06/12/21 23:04 Temperature 97.9 F 98.2 F Pulse Rate 85 92 Respiratory Rate 18 18 Blood Pressure 116/78 112/65 Pulse Oximetry 95 97 Intake/Output Intake/Output: Intake & Output 06/10/21 06/11/21 06/12/21 06/13/21 23:59 23:59 23:59 23:59 Intake Total 600 3310 90 Output Total 200 950 600 Balance 400 2360 -510 Meds/Results Medications: Active Medications Generic Name Dose Route Start Last Admin Trade Name Freq PRN Reason Stop Dose Admin Acetaminophen 650 mg 06/11/21 23:35 Acetaminophen 325 Mg Tablet PO Q4H PRN Headache Acetaminophen 1,000 mg 06/11/21 23:35 Acetaminophen 500 Mg Tablet PO Q6H PRN Mild Pain (1-3) or Fever Enoxaparin Sodium 40 mg 06/12/21 09:00 06/12/21 08:45 Enoxaparin 40 Mg/0.4 Ml Syringe SUB-Q 40 mg DAILY DARIEL Administration Sodium Chloride 1,000 mls @ 100 mls/hr 06/11/21 23:35 06/12/21 22:25 Normal Saline Iv IV CONT 100 mls/hr .Q10H DARIEL Administration Lacosamide 200 mg 06/12/21 09:00 06/12/21 21:40 Lacosamide (*Crx) 200 Mg Tablet PO 06/14/21 10:00 200 mg Q12HR DARIEL Administration Lacosamide 250 mg 06/14/21 21:00 Lacosamide (*Crx) 50 Mg Tablet PO Q12HR DARIEL Lorazepam 4 mg 06/11/21 23:25 Lorazepam Inj (*Crx) 2 Mg/Ml Vial IV PUSH Q4HR PRN seizure Nonformulary Drug ( 8 mg 06/12/21 21:00 06/12/21 21:41 Perampanel [Fycompa] PO 07/12/21 20:59 8 mg 4 Mg Tablet) HS DARIEL Administration Radiology Results: ITS Impressions Chest X-Ray 06/11/21 14:54 IMPRESSION: No acute cardiopulmonary findings. Head CT 06/11/21 21:27 IMPRESSION: 1. Unremarkable head CT examination. Labs Labs: Laboratory Results - last 24 hr 06/13/21 07:26 WBC 10.2 RBC 3.38 L Hgb 10.8 L Hct 32.2 L MCV 95.3 MCH 32.0 H MCHC 33.5 RDW 13.7 Plt Count 270 MPV 9.0 L
[2021-06-13] MEDS: LACOSAMIDE (*CRX) 200 MG TABLET PO ×2 (09:39→21:49)
[2021-06-13] MEDS: ENOXAPARIN 40 MG/0.4 ML SYRINGE SUB-Q (09:39)
[2021-06-13] MEDS: POTASSIUM CHLORIDE 20 MEQ TABLET PO ×2 (12:13→17:10)
[2021-06-13 16:00] VITALS: BP 127/84; PULSE 97; RESP 16; TEMP 37; O2SAT 96
[2021-06-13] MEDS: ACETAMINOPHEN 325 MG TABLET 650 MG PO (18:42)
[2021-06-13] MEDS: ACETAMINOPHEN 500 MG TABLET 1000 MG PO (22:58)
[2021-06-13 23:02] VITALS: BP 126/79; PULSE 91; RESP 17; TEMP 37.1; O2SAT 96
[2021-06-14] MEDS: LORazepam INJ (*CRX) 2 MG/ML VIAL 4 MG IV PUSH (01:35)
[2021-06-14 05:03] LABS: Hematocrit 35.6 % (35.0-49.0); Hemoglobin 12.2 g/dL (12.0-15.0); Mean Corpuscular HGB Conc 34.3 g/dL (32.0-36.0); Mean Corpuscular Hemoglobin 32.4 pg (27.0-31.0); Mean Corpuscular Volume 94.7 fL (78.0-102.0); Mean Platelet Volume 9.3 fl (9.2-11.8); Platelet Count Result 341 K/mm3 (150-420); Red Blood Count 3.76 M/mm3 (4.20-5.40); Red Cell Distribution Width 13.5 % (11.6-14.4); White Blood Count 9.9 K/mm3 (4.8-10.8)
[2021-06-14] MEDS: ACETAMINOPHEN 325 MG TABLET 650 MG PO ×2 (05:03→10:03)
--- NOTE | 2021-06-14 05:09 | PC.NURSE ---
Pt complaining of 5/10 pain in her R shoulder. Pt was brought 650mg Tylenol and a warm blanket to provide comfort to the area.
[2021-06-14 05:19] LABS: Anion Gap 12 mmol/L (8-16); Blood Urea Nitrogen 4 mg/dL (7-18); Calcium 8.8 mg/dL (8.5-10.1); Carbon Dioxide 24 mmol/L (21-32); Chloride 103 mmol/L (98-108); Estimated CRCL calculation 135 ml/min; Estimated Glomerular Filt Rate > 60; Glucose 125 mg/dL (70-99); Osmolality Calculated 285 mOsm/kg (285-295); Potassium 3.4 mmol/L (3.5-5.1); Sodium 139 mmol/L (136-145)
--- NOTE | 2021-06-14 07:12 | PM.DS ---
DS: Admitting Diagnosis Discharge Date 06/14/2021 Admitting Diagnosis Breakthrough Seizures DS: Summary Time Spent with Patient Time attestation: Total time spent providing and/or coordinating discharge services: DS: Data Data Completed and Pending Labs on day of discharge: Labs from last 24 hours 06/14/21 06/14/21 06/13/21 04:41 04:41 07:26 WBC 9.9 RBC 3.76 L Hgb 12.2 Hct 35.6 MCV 94.7 MCH 32.4 H MCHC 34.3 RDW 13.5 Plt Count 341 MPV 9.3 Sodium 139 141 Potassium 3.4 L 3.3 L Chloride 103 105 Carbon Dioxide 24 26 Anion Gap 12 10 BUN 4 L 7 Creatinine 0.70 0.62 Estim Creat Clear Calc 135 151 Estimated GFR > 60 > 60 Glucose 125 H 104 H Calculated Osmolality 285 290 Calcium 8.8 7.8 L 06/13/21 07:26 WBC 10.2 RBC 3.38 L Hgb 10.8 L Hct 32.2 L MCV 95.3 MCH 32.0 H MCHC 33.5 RDW 13.7 Plt Count 270 MPV 9.0 L Sodium Potassium Chloride Carbon Dioxide Anion Gap BUN Creatinine Estim Creat Clear Calc Estimated GFR Glucose Calculated Osmolality Calcium Preliminary micro results at discharge 06/11/21 15:36 Blood Culture - Preliminary Blood Discharge Plan Discharge Attending physician on discharge: Steven Nettles Consulting providers: Jorge L Argueta Discharging Clinician: Jose Alberto Callejas Anticipated Discharge Date/Time: 06/14/21 11:00 Patient Disposition: Home, Self-Care Activity: may shower and no driving Diet: as tolerated Discharge Instructions: Make sure you follow up with [facility] Primary care Provider in 5-7 days Call Patient Instructions: Antibiotic Form, Epilepsy (DC), Childhood Absence Epilepsy (DC) Stand Alone Forms: General Discharge Information Discharge Medications: New Vimpat 50 mg tablet 50 mg PO Q12H 30 Days Qty: 60 RF: 0 No Action clobazam 10 mg tablet 40 mg PO HS RF: 0 Vimpat 200 mg Tablet 200 mg PO Q12H 30 Days Qty: 60 RF: 0 Fycompa 2 mg Tablet 8 mg PO HS 30 Days Qty: 120 RF: 0 Date of admission: 06/11/21 23:15 Primary Care Provider: Jame Khan Admitting Provider: Rohan Echevarria Attending physician on admission: Rohan Echevarria Condition: Improved
[2021-06-14 08:00] VITALS: BP 120/82; PULSE 90; RESP 16; TEMP 37; O2SAT 96
[2021-06-14] MEDS: POTASSIUM CHLORIDE 20 MEQ TABLET PO (08:31)
[2021-06-14] MEDS: LACOSAMIDE (*CRX) 200 MG TABLET PO (08:33)
--- NOTE | 2021-06-14 08:50 | PC.NURSE ---
Pt coughed while taking meds. Stated she threw up her meds and they were laying in her lap. Replaced both potassium and vimpat with new pills. Pt took each pill individually without incident.
--- NOTE | 2021-06-14 10:52 | PCPTNOTE ---
No Care Plan initiated due to patient being discharged today.
--- NOTE | 2021-06-14 12:45 | PC.NURSE ---
Called pt's dad, Guille. Went over discharge instructions with him. All questions answered. He said he is currently having difficulty getting a ride home. Will continue to observe pt until ride is available.
--- NOTE | 2021-06-14 14:26 | PM.DS ---
DS: Admitting Diagnosis Discharge Date 06/14/2021 Admitting Diagnosis Break through Seizure, Weakness and Loss of Consciousness DS: Discharge Diagnosis Discharge Diagnosis (1) Leucocytosis: Code(s): D72.829 - Elevated white blood cell count, unspecified Status: Acute Assessment and Plan: WBC17....10.2 ...9.9resolved Patient not in need of any any antibiotic or further issues with this (2) Breakthrough seizure: Code(s): G40.919 - Epilepsy, unspecified, intractable, without status epilepticus Status: Acute Assessment and Plan: No seizures since admission 3rd day with no seizures Will continue with oral medication Will have phsyical therapy to assess for possible safe return home for today and or tomorrow. (3) Weakness: Code(s): R53.1 - Weakness Status: Acute Assessment and Plan: Physical therapy will assess for needs and ability for home/ Insurance does not cover and patient will need outpatient therapy. Patient is on fall precaution. Seizure precaution DS: Summary Hospital Course Hospital Course: Mrs White presented to the emergency having clonic tonic seizure and continued to have repeated seizure with the administration of Keppra, Ativan and home dose of Vimpat which has been increased to 250 mg BID. Patient for the first 2 days was very slow to respond and not very active. As of today patient is alert and orientated and talking eating and drinking without difficulties. Patient is aware of the plan of care as well I personally spoke with patient father Fran and informed him of the instruction and plan of care and where the medication was sent to for him to brain picker. Since in the emergency room patient has not had any further seizures and is able to ambulate although unsteady and in need of walker. Patient insurance does not cover home health but she has been given a referral for outpatient therapy and dad states he is comfortable taking patient at this time. Time Spent with Patient Time attestation: Total time spent providing and/or coordinating discharge services: Exam Narrative: GENERAL:Well-appearing, well-nourished, and in no acute distress. HEAD:Normocephalic, atraumatic. EYES: PERRLA and EOMI. ENT: Nares clear Mucous membranes moist. facial abrasion noted CHEST: Clear to auscultation. No respiratory distress. HEART: Regular rate and rhythm. Normal peripheral pulses. ABDOMEN: Soft, nontender, nondistended, normal active bowel sounds. EXTREMITIES: Normal range of motion. No edema. SKIN: Warm, dry, no rash. NEURO: No focal deficits. Alert and oriented x3.talking and moving around without diffculties DS: Data Data Completed and Pending Labs on day of discharge: Labs from last 24 hours 06/14/21 06/14/21 04:41 04:41 WBC 9.9 RBC 3.76 L Hgb 12.2 Hct 35.6 MCV 94.7 MCH 32.4 H MCHC 34.3 RDW 13.5 Plt Count 341 MPV 9.3 Sodium 139 Potassium 3.4 L Chloride 103 Carbon Dioxide 24 Anion Gap 12 BUN 4 L Creatinine 0.70 Estim Creat Clear Calc 135 Estimated GFR > 60 Glucose 125 H Calculated Osmolality 285 Calcium 8.8 Preliminary micro results at discharge 06/11/21 15:36 Blood Culture - Preliminary Blood Discharge Plan Discharge Attending physician on discharge: Steven Nettles Consulting providers: Jorge L Argueta Discharging Clinician: Jose Alberto Callejas Anticipated Discharge Date/Time: 06/14/21 11:00 Patient Disposition: Home, Self-Care Activity: may shower and no driving Diet: as tolerated Discharge Instructions: Make sure you follow up with [facility] Primary care Provider in 5-[address] Altagracia Champion Neurologist in [facility] for an appointment and further instruction We increased your Vimpat to 250 mg BID after a phone consult with Dr. Villalobos at [facility] Make sure you are staying well hydrated and taking medication as directed. Due to your insur
--- NOTE | 2021-06-17 11:13 | PC.NURSE ---
Pt states discharge instructions were discussed with her father. Pt has no other comments.
== END 2021-06-14 20:15 | disposition home or self-care (01) ==
LOC: CHSED 17:36 → CHS2ND 06-12 06:33
PROVIDERS: Nurse Practitioner; Nurse Practitioner Family; Admitting Provider Emergency Medicine; Emergency Provider Emergency Medicine; PCP Family Medicine; Visit Provider Emergency Medicine
DX: G40.919 Epilepsy, unspecified, intractable, without status epilepticus (principal); D72.829 Elevated white blood cell count, unspecified; Z20.822 Contact with and (suspected) exposure to COVID-19
CPT/HCPCS: 36415; 70450; 71045; 80048; 80053; 80307; 81003; 83735; 84484; 84703; 85025; 85027; 87040; 87426; 93005; 96361; 96365; 96366; 96372; 96374; 96375; 96376; 97161; 99285; A9270; C9803; G0378; J1650; J1953; J2060; J2310; J7030; J7040

== ENCOUNTER 2021-09-26 21:34 | Emergency (ER) | payer OTHER, SELFPAY ==
--- NOTE | ~2021-09-26 | CT_ITS ---
EXAMINATION: CT brain wo con DATE: 09/26/2021 22:32 INDICATION: Seizure. Headache. TECHNIQUE: Computed tomography (CT) of the head was performed without intravenous contrast. The mA wa s adjusted according to patient size. Iterative reconstruction technique was employed. The dose-lengt h product was 605.33 mGy-cm. COMPARISON: Head CT 06/11/2021 FINDINGS: There is no intracranial hemorrhage, acute infarction, or abnormal intracranial mass lesion . The ventricles are normal in size. The paranasal sinuses are clear. The mastoid air cells are monty l. IMPRESSION: 1. Normal brain. Reviewed, dictated and finalized at location A. IMPRESSION: 1. Normal brain.
[2021-09-26 21:45] VITALS: BP 117/73; PULSE 92; RESP 20; TEMP 36.4; O2SAT 95
--- NOTE | 2021-09-26 21:46 | ECG_ITS ---
Measurements Intervals [place] Rate: 89 P: 36 [place]: 153 QRS: 34 QRSD: 86 T: 23 QT: 339 QTc: 415 Interpretive Statements SINUS RHYTHM WITH SINUS ARRHYTHMIA NORMAL ECG Electronically Signed On 09-27-2021 6:36:31 CDT by Eamon Emanuel D.O.
[2021-09-26 22:18] LABS: Basophils Absolute Auto 0.02 K/mm3 (0.00-0.10); Basophils Percent Auto 0.2 % (0.0-1.0); Eosinophils Absolute Auto 0.04 K/mm3 (0.02-0.50); Eosinophils Percent Auto 0.3 % (1.0-6.0); Hemoglobin 13.6 g/dL (12.0-15.0); Immature Granulocyte Absolute 0.06 K/mm3 (0.00-0.00); Immature Granulocyte Percent A 0.5 % (0.0-0.0); Lymphocytes Absolute Auto 1.33 K/mm3 (1.10-4.50); Lymphocytes Percent Auto 10.8 % (18.0-42.0); Mean Corpuscular HGB Conc 33.2 g/dL (32.0-36.0); Mean Corpuscular Volume 96.5 fL (78.0-102.0); Mean Platelet Volume 9.5 fl (9.2-11.8); Monocytes Absolute Auto 0.48 K/mm3 (0.10-0.90); Monocytes Percent Auto 3.9 % (2.0-11.0); Neutrophils Absolute Auto 10.4 K/mm3 (1.7-7.2); Neutrophils Percent Auto 84.3 % (50.0-70.0); Platelet Count Result 319 K/mm3 (150-420); Red Blood Count 4.25 M/mm3 (4.20-5.40); Red Cell Distribution Width 13.8 % (11.6-14.4); White Blood Count 12.3 K/mm3 (4.8-10.8)
--- NOTE | 2021-09-26 22:38 | ED.SEIZURE ---
HPI - Seizure General Chief Complaint: Seizure Stated Complaint: AMB Source: patient Mode of arrival: ambulatory Limitations: no limitations History of Present Illness HPI Narrative: this is a 27-year-old female with a history of seizures that apparently had 3 seizure events throughout the day last seizure was witnessed by father lasting about 30seconds [id number] patient brought in by EMS is alert oriented but postictal with some currently headache with no nausea or vomiting no chest pain no abdominal pain no current seizure activity no fever chills. Patient sees neurologist and has seen her neurologist about a month ago and is currently on anti seizure medication and is compliant with taking her medicines. Others no bowel or bladder dysfunction, looks like a small lesion on the distal portion of her tongue may be bitten. complaint: seizure Onset (ago): hour(s) Description of Episode: post-event confusion Duration of episode: 1 -: minutes(s) Witnessed: Yes - by Bystander Trauma: No Seizure History: Yes Place: home Possible Precipitating Event: none Associated symptoms: denies other symptoms and weakness Treatments prior to arrival: none Related Data Home Medications Medication Instructions Recorded Confirmed clobazam 40 mg PO HS 06/11/21 09/26/21 olanzapine 10 mg PO DAILY 09/26/21 09/26/21 Allergies Allergy/AdvReac Type Severity Reaction Status Date / Time [facility] Allergy Unknown Verified 09/26/21 21:45 Review of Systems Review of Systems: All systems reviewed & are unremarkable except as noted in HPI and below PMFSH Past Medical History Medical History Breakthrough seizure Epilepsy Patient of Dr. Altagracia Champion in [place]. Surgical History Surgical History No history of previous surgery Family History Family History Father End stage renal failure on dialysis Social History Social History Social History: Surrogate decision maker: Guille Shintacho, father. Code status: Full code. Smoking status: Never smoker Second hand tobacco smoke exposure: No Alcohol intake: never Substance use: never Additional living arrangements comments: The patient lives in [place] with her father. Additional occupation/education comments: Unemployed. Gender identity (if verbalized by the patient): Female Spiritual care concerns: No Exam Const: General: no acute distress and alert Orientation/consciousness: patient oriented x3 and confusion HENMT: Head: normal to inspection Other: Small contusion on tongue Eyes: Conjunctivae: conjunctivae normal Pupils: Equal, round and reactive pupils present Neck: Neck: normal visual inspection, no lymphadenopathy and no meningeal signs Chest: Chest palpation & inspection: normal inspection of the chest Resp: Effort & Inspection: normal respiratory effort Auscultation: clear to auscultation bilaterally Cardio: Rate: regular rate Rhythm: regular rhythm GI: GI Palp: Yes Soft to palpation Percussion: Yes normal to percussion : General: Yes no CVA tenderness Urinary Catheter: Urinary Catheter: patent and draining Back/Spine/Pelvis: Back: no CVA tenderness Skin: General skin exam: normal color Rashes: no rashes Neuro: General: patient oriented x3, moves all extremities, no meningeal signs and no focal motor deficits Extrem: General: normal to inspection and no pedal edema Psych: Mental Status: mental status grossly normal Affect: normal affect Attitude: cooperative Course Course Emergency Course: patient received 0.5 of IV Ativan and 2mg of morphine for history of seizure activity and current headache, CT scan and EKG were reviewed with patient as well as blood work. Vital Signs Maria G
--- NOTE | 2021-09-26 22:59 | PC.NURSE ---
currently unable to achieve IV access, 2nd nurse will try
[2021-09-26] MEDS: LORazepam (*CRX) 0.5 MG TABLET PO (23:23)
[2021-09-26 23:26] VITALS: PULSE 77; O2SAT 97
[2021-09-26 23:27] LABS: Lactic Acid Reflex 1.9 mmol/L (0.7-2.0)
[2021-09-26 23:29] LABS: Alanine Aminotransferase 29 U/L (6-35); Alkaline Phosphatase 98 U/L (38-126); Anion Gap 7 mmol/L (8-16); Aspartate Amino Transferase 30 U/L (14-36); Bilirubin,Total 0.7 mg/dL (0.2-1.3); Blood Urea Nitrogen 9 mg/dL (7-17); Calcium 8.7 mg/dL (8.4-10.2); Carbon Dioxide 26 mmol/L (22-30); Chloride 106 mmol/L (98-107); Creatine Kinase 51 U/L (30-135); Estimated Glomerular Filt Rate > 60; Glucose 83 mg/dL (65-110); Osmolality Calculated 285 mOsm/kg (285-295); Potassium 4.5 mmol/L (3.4-5.0); Sodium 139 mmol/L (137-145)
[2021-09-26 23:30] VITALS: PULSE 82; O2SAT 96
--- NOTE | 2021-09-26 23:32 | PC.NURSE ---
multiple iv attempts made by both RN, requested med's switched to PO
[2021-09-26 23:45] VITALS: PULSE 89; O2SAT 97
== END 2021-09-27 00:13 | disposition home or self-care (01) ==
PROVIDERS: Emergency Provider Emergency Medicine
DX: G40.909 Epilepsy, unspecified, not intractable, without status epilepticus (principal)
CPT/HCPCS: 36415; 70450; 80053; 82550; 83605; 85025; 93005; 99284; A9270

== ENCOUNTER 2022-04-12 00:41 | Emergency (ER) | payer OTHER, SELFPAY ==
--- NOTE | ~2022-04-12 | XR_ITS ---
XR shoulder RT min 2V 04/12/2022 01:19 Indication: Right shoulder pain after fall Procedure: 4 views right shoulder Comparison: No prior studies for comparison. Findings: There is a fracture of the inferior margin of the glenoid process. The acromioclavicular nora int is in anatomic alignment. No definite humeral fracture. Impression: 1: Acute fracture inferior margin of the glenoid process within inferior displacement. Dr. Yousuf Alan discussed with Dr. Scottie MD at 04/12/2022 08:49 [employer] ASSIST[employer]. Reviewed, dictated and finalized at location A. START ASSISTANT TEACHER Impression: 1: Acute fracture inferior margin of the glenoid process within inferior displa cement. Dr. Yousuf Alan discussed with Dr. Scottie MD at 04/12/2022 08:49 HEAD [employer] ASSISTANT TE[employer]ER.
[2022-04-12 00:42] VITALS: BP 144/83; PULSE 118; RESP 20; TEMP 36.7; O2SAT 95
[2022-04-12] MEDS: ACETAMINOPHEN 325 MG TABLET 650 MG PO (01:17)
--- NOTE | 2022-04-12 01:23 | ED.UPPEXIN ---
HPI - Extremity Injury (Upper) General Chief Complaint: Extremity Injury, Upper Stated Complaint: LEFT SHOULDER PAIN Time Seen by Provider: 04/12/22 00:45 Source: patient and RN notes reviewed Mode of arrival: ambulatory Limitations: no limitations History of Present Illness complaint: injury to: right and shoulder Onset (ago): hour(s) (4) Other Extremity Injury: Right: shoulder Other injuries: none Place: outdoors Severity: mild Relieving factors: immobilization Exacerbating factors: movement of extremity Context: fall Related Data Home Medications Medication Instructions Recorded Confirmed clobazam 10 mg tablet 40 mg PO HS 06/11/21 04/12/22 olanzapine 10 mg tablet 10 mg PO DAILY 09/26/21 04/12/22 Allergies Allergy/AdvReac Type Severity Reaction Status Date / Time [facility] Allergy Unknown Verified 04/12/22 00:53 Review of Systems Review of Systems: All systems reviewed & are unremarkable except as noted in HPI and below Constitutional: Constitutional: Reports no additional constitutional complaints Eyes: Eyes: Reports no additional eye complaints ENT: Reports system reviewed and no additional complaints, except as documented Cardiovascular: Cardiovascular: Reports no additional cardiovascular complaints Respiratory: Respiratory: Reports no additional respiratory complaints Gastrointestinal: Gastrointestinal: Reports no additional gastrointestinal complaints Genitourinary: Genitourinary: Reports no additional female genitourinary complaints Musculoskeletal: Musculoskeletal: Reports no additional musculoskeletal complaints Comments: right shoulder pain Integumentary/Breasts: Skin/Breast: Reports system reviewed and no additional complaints, except as docu Neurologic: Reports system reviewed and no additional complaints, except as documented Psychiatric: Psychiatric: Reports no additional psychiatric complaints Endocrine: Endocrine: Reports no additional endocrine complaints Hematologic/Lymphatic: Hematologic/Lymphatic: Reports no additional hematologic/lymphatic complaints Allergic/Immunologic: Allergic/Immunologic: Reports no additional allergic/immunologic complaints [facility] Past Medical History Medical History Breakthrough seizure Epilepsy Patient of Dr. Altagracia Champion in [place]. Glenoid fracture of shoulder Surgical History Surgical History No history of previous surgery Family History Family History Father End stage renal failure on dialysis Social History Social History Social History: Surrogate decision maker: Guille White, father. Code status: Full code. Smoking status: Never smoker Second hand tobacco smoke exposure: No Alcohol intake: never Substance use: never Additional living arrangements comments: The patient lives in [place] with her father. Additional occupation/education comments: Unemployed. Gender identity (if verbalized by the patient): Female Spiritual care concerns: No Exam Const: General: healthy appearing, no acute distress and well nourished Nutritional Appearance: well nourished Orientation/consciousness: patient oriented x3 Limitations: no limitations HENMT: Head: normal to inspection Ears: external ears normal, TM's normal bilaterally and EAC's normal Face/Nose/Sinus: Normal external nose present, Normal nares present, normal facial exam and sinuses nontender Face and sinus: normal facial exam and sinuses nontender Mouth: Yes Normal oral and palatal mucosa present and Yes moist mucous membranes Teeth and gingiva: dentition normal Throat: posterior oropharynx normal Eyes: Conjunctivae: conjunctivae normal Pupils: Equal, round and reactive pupils present EOM: EOMs intact bilater
[2022-04-12 01:54] VITALS: BP 136/90; PULSE 101; RESP 18; O2SAT 100
--- NOTE | 2022-04-12 01:54 | PC.NURSE ---
While performing DC instructions, RN reassess circulation of hand distal to sling. Pt still has good PMS present and denies pain.
--- NOTE | 2022-04-12 08:58 | PC.NURSE ---
pt remains in the lobby. multiple calls for a ride home. informed pt of confirmed fracture and need for followup with orthopedics and informed of proper placement of sling. pt voiced understanding.
== END 2022-04-12 02:02 | disposition home or self-care (01) ==
PROVIDERS: Emergency Provider Emergency Medicine
DX: S42.141A Displaced fracture of glenoid cavity of scapula, right shoulder, initial encounter for closed fracture (principal)
CPT/HCPCS: 73030; 99284; A4565; A9270